=== PATIENT | male | born 1960 | race Caucasian/White ===

== ENCOUNTER 2017-02-15 13:17 | Emergency (ER) | payer OTHER ==
[~2017-02-15] VITALS: Ht 172.7 cm; Wt 64.9 kg
[~2017-02-15 13:17] MED LIST: CENTRUM SILVER1 EAC2 PO; CEPHALEXIN500 MG PO; CITALOPRAM HBR20 MG PO; LOTENSIN HCT PO; MS CONTIN30 MG PO; NORCO 5-325 TA1 EACH PO; OXYCODONE HCL10 MG PO; SEPTRA DS TABL1 EACH PO; SIMVASTATIN10 MG PO; [UNRECOGNIZED DRUG - OTHER]
[2017-02-15] MEDS ORDERED: PROAIR HFA8.5 GM INH (13:36)
[2017-02-15] MEDS ORDERED: KETOROLAC TROME10 MG PO (13:48)
[2017-02-15] MEDS ORDERED: VENTOLIN HFA18 GM INH (13:48)
== END 2017-02-15 13:55 | disposition home or self-care (01) ==
LOC: ED 13:17
DX: Z76.0 Encounter for issue of repeat prescription (principal); J44.9 Chronic obstructive pulmonary disease, unspecified; F43.10 Post-traumatic stress disorder, unspecified; F17.200 Nicotine dependence, unspecified, uncomplicated; Z79.899 Other long term (current) drug therapy
CPT/HCPCS: 99281

== ENCOUNTER 2018-07-30 04:19 | Inpatient (IN) | payer MEDICARE, OTHER ==
[~2018-07-30] VITALS: Ht 172.7 cm; Wt 60.8 kg
[~2018-07-30 04:19] MED LIST changes: +KETOROLAC TROME10 MG PO; +PROAIR HFA8.5 GM INH; +VENTOLIN HFA18 GM INH
[2018-07-30] MEDS ORDERED: DEPAKOTE500 MG PO (04:33)
[2018-07-30] MEDS ORDERED: CELEXA40 MG PO (04:34)
[2018-07-30] MEDS ORDERED: HYDROCHLOROTHIA25 MG (04:35)
[2018-07-30] MEDS ORDERED: HYDROXYZINE HCL10 MG PO (04:36)
[2018-07-30] MEDS ORDERED: RISPERIDONE4 MG PO (04:36)
[2018-07-30] MEDS ORDERED: ONDANSETRON ODT8 MG PO (04:38)
[2018-07-30] MEDS ORDERED: AMOXICILLIN500 MG PO (04:39)
[2018-07-30] MEDS ORDERED: MONTELUKAST SOD10 MG PO (04:39)
--- NOTE | 2018-07-30 07:41 | NUR ---
PT TO CCU AT APPROXIMATLY 0720 FROM ER. PT IV SITE INTACT, NO REDNESS OR SWELLING NOTED, PT DENIES PAIN WITH FLUSH. PT IS ALERT AND ORIENTED X4, VERY FIDGETY IN THE BED, HAS DIFFICULTY HOLDING STILL, PT IS COOPERATIVE. PT ABLE TO TRANSFER SELF BY SCOOTING FROM GURNEY TO BED. PT DENIES PAIN, NAUSEA, C/O SOB AT THIS TIME, STATES BIPAP IS HELPING.
--- NOTE | 2018-07-30 09:08 | NUR ---
PT HAS BIPAP OFF FOR A BREAK, PLACED ON 4L OXYMASK. PT ABLE TO SWALLOW PILLS EASILY WITH WATER. PT APPEARS MORE CALM AT THIS TIME, NO LONGER FIDGETING IN BED, ABLE TO CLOSE EYES AND REST AT TIMES.
--- NOTE | 2018-07-30 09:55 | NUR ---
pt placed back on bipap.
--- NOTE | 2018-07-30 10:37 | NUR ---
PT UP OUT OF BED SUDDENLY TO USE THE RESTROOM. PT ASSISTED WITH GETTING BIPAP OFF, GIVEN URINAL TO USE AT THE BEDSIDE. PT ABLE TO VOID 425, THEN BACK TO BED. 4 L VIA OXYMASK IN PLACE, BED ALARM IS ON, CALL LIGHT WITHIN REACH. EDUCATION GIVEN TO PT ABOUT THE IMPORTANCE OF CALLING FOR HELP BEFORE GETTING OUT OF BED, PT APPEARS AGREEABLE TO THIS.
--- NOTE | 2018-07-30 12:02 | NUR ---
IV SITE INTACT, NO REDNESS OR SWELLING NOTED, PT DENIES PAIN WITH FLUSH OR INFUSION. PT MOSTLY RESTING, WAKES EASILY. PT DENIES PAIN, NAUSEA, AND SOB AT THIS TIME. PT DELISA OXYMASK WELL, O2 SATS 97%. PT STATES HE IS TOO TIRED TO EAT HIS CLEAR LIQUID LUNCH TRAY AT THIS TIME. VITALS WNL.
--- NOTE | 2018-07-30 12:39 | NUR ---
RENEE LAYNE STATED THAT PT HAD A ROUGH NIGHT BREATHING, AND HAD FINALLY FALLEN ASLEEP. SHE REQUESTED I NOT DISTURB PT AT THIS TIME. WILL FOLLOW NEEDED
--- NOTE | 2018-07-30 13:52 | NUR ---
PT JUST OFF THE PHONE FROM VISITING WITH HIS . PT C/O BEING HUNGERY, REQUESTING A SANDWICH, THIS RN ASKED THE PT TO EAT SOME CRACKERS AND DRINK A 7-UP FIRST BEFORE SOLID FOOD. PT C/O THIS PLAN, HOWEVER IS EATING A CRACKER. PT STATES "I'M BORED". ALSO STATES "I WANT TO GO HOME".
--- NOTE | 2018-07-30 13:56 | NUR ---
PT APPEARS TO BE BECOMING ANXIOUS AGAIN. IS FIDGETING IN BED, RESTLESS MOVEMENT OF HANDS AND FEET.
--- NOTE | 2018-07-30 14:06 | NUR ---
CALLED TO UPDATE ON PT REQUEST FOR SANDWICH, ORDER GIVEN TO ADVANCE DIET TO HEART HEALTHY DIET. UPDATED ALSO ON RESP STATUS, PT NOT REQUIRING BIPAP, RESTING AND TALKING COMFORTABLY WITH OXYMASK ON OR ON ROOM AIR.
--- NOTE | 2018-07-30 14:22 | NUR ---
PT GIVEN VISTARIL PO FOR INCREASED ANXIETY, GIVEN TYLENOL PO FOR ELEVATED TEMP OF 99.8, OFFERED PT A SANDWICH, PT STATES "I'LL HAVE ONE LATER, NOT RIGHT NOW".
--- NOTE | 2018-07-30 17:05 | NUR ---
IV SITE INTACT, NO REDNESS OR SWELLING NOTED, PT DEINES PAIN WITH INFUSION OF FLUIDS. PT IS ALERT AND ORIENTED X4. PT DENIES PAIN, NAUSEA, AND SOB AT THIS TIME. PT SITTING UP IN BED WATCHING TV. VITALS WNL AT THIS TIME. PT DELISA ROOM AIR, O2 SATS ARE 98%.
--- NOTE | 2018-07-30 17:10 | NUR ---
TRIED TO SEE PATIENT TWICE TODAY, BOTH TIMES PATIENT WAS SLEEPING SOUNDLY AND STAFF DID NOT WANT TO WAKE HIM. SPOKE WITH STAFF NURSES WHO STATE THEY HAS SPOKEN WITH PATIENTS BY PHONE AND THAT SHE EXPECTS PATIENT DISCHARGE TO HOME. WIFES NAME IS HERIBERTO AND NUMBER IS [phone]. STAFF STATE PATIENT IS AMBULATORY AND DOES NOT USE KNOWN DME.
--- NOTE | 2018-07-30 18:41 | NUR ---
PT ABLE TO EAT PART OF HIS DINNER, THEN FELL ASLEEP IN BED, WILL LEAVE TRAY IN CASE PT WOULD LIKE TO EAT MORE.
--- NOTE | 2018-07-30 19:15 | NUR ---
Patients bed alarm went off during report I popped in and he was using the urinal. He resulted in 425ccs. Patient did not need anything further at this time.
--- NOTE | 2018-07-30 20:00 | NUR ---
RECEIVED REPORT AT 1900, FOUND PT IN BED SLEEPING. PT HAS SINCE BEEN SLEEPING MOST OF THE TIME. NO NEW CONCERNS NOTED AT THIS TIME. ALL LOBES CLEAR. NO EDEMA NOTED, ABD SOUNDS PRESENT.
--- NOTE | 2018-07-30 22:00 | NUR ---
PT AT THIS TIME IS STILL SLEEPING. I ASSUEME HE IS COMING OF THE METH. PT DENIED ANY NEEDS OR CONCERNS. WILL CONTINUE TO MONITOR.
--- NOTE | 2018-07-31 01:37 | NUR ---
PT IS STILL SLEEPING. NO NEW CONCERNS NOTED AT THIS TIME.
--- NOTE | 2018-07-31 03:30 | NUR ---
PT IS SLEEPING. NO NEW CONCERNS.
--- NOTE | 2018-07-31 04:30 | NUR ---
LOBES ARE CLEAR BUT VERY DIMINISHED AT THIS TIME. PT IS STILL VERY TIRED. ASKED PT IF HE NEEDED TO VOID AND PT STATED "NOT AT THIS TIME BUT IN A LITTLE WHILE". V/S ARE WDL AND PT IS STILL ON RA. NO NEW CONCERNS NOTED.
--- NOTE | 2018-07-31 06:29 | NUR ---
PT AWOKE SHORTLY BEFORE 0600 AND WAS IN NEED OF A BREATHING TREATMENT. RT WAS CALLED. PT WAS WHEEZING AT THAT TIME. TREATMENT HELPED PT A LOT WAS STATED BY HIM. PT ALSO PULLED OUT IV WHILE STANDING ON SIDE OF THE BED TO VOID. NEW IV SITE WAS PLACED. V/S ARE WDL, NO NEW CONCERNS NOTED SO FAR. PT NOW IS BACK IN BED SLEEPING. PT ALSO STATED THAT HE WILL LEAVE HERE ON Thursday08/01/18 AMA IS HE WON'T BE D/C.
--- NOTE | 2018-07-31 07:30 | NUR ---
REPORT RECIEVED. PATIENT IS ASLEEP.HOB ELEVATED.
--- NOTE | 2018-07-31 08:30 | NUR ---
ATTEMPTED TO GIVEN PATIENT MEDICATIONS. PATIENT REMAINS VERY SLEEPY. STATES " I WILL TAKE THEM LATER" BACK TO SLEEP WITHIN SECONDS.
--- NOTE | 2018-07-31 09:34 | NUR ---
remains asleep. BREAKFAST IS AT BEDSIDE. NO DISTRESS NOTED.
--- NOTE | 2018-07-31 11:09 | NUR ---
CONTINUE TO SLEEP. NO DISTRESS NOTED.
--- NOTE | 2018-07-31 11:20 | NUR ---
PATIENT IS AWAKE UPON DR. VOGT ENTERING ROOM. PATIENT STATES HE FEELS MUCH BETTER TODAY. TOMMIE RECIVED TO TRANSFER TO [facility]LO[facility].
--- NOTE | 2018-07-31 11:35 | NUR ---
TALKING TO ON PHONE. NO DISTRESS NOTED.
--- NOTE | 2018-07-31 11:45 | NUR ---
PATIENT IS UP IN ROOM. TAKING OFF PJ BOTTOMS, MONITOR LEADS, OXIMETER, ATTEMPTING TO TAKE IV OUT. PATIENT STATES"I AM LEAVING". NO REASONING WITH PATIENT. DR. VOGT NOTIFIED. DR. VOGT THEN CAME TO TALK WITH PATIENT. AFTER DR. VOGT TALKED WITH PATIENT, HE AGREED TO STAY IN HOSPITAL.
--- NOTE | 2018-07-31 12:00 | NUR ---
DRESSED IN OWN CLOTHING. ASSESSMENT DONE. VISTARIL 50 MG PO GIVEN. PATIENT IS SHAKEY. IS COOPERATIVE AT THIS TIME.
--- NOTE | 2018-07-31 12:15 | NUR ---
IV STARTED TO RIGHT FOREARM. IS COOPERATIVE AT THIS TIME. DENIES PAIN OR SHORTNESS OF BREATH. RESP ARE LABORED WITH EXERTION. IVF OF D5LR INFUSING.
--- NOTE | 2018-07-31 12:35 | NUR ---
TOOK LUNCH WELL. REPORT GIVEN TO MED-CASH MANAGEMENT CLERK.
--- NOTE | 2018-07-31 12:50 | NUR ---
AMBULATED TO ROOM 109 FROM 129 ACCOMP BY RN. O2 AT 3 L ON DURNING THIS TRANSFER. REMAINS COOPERATIVE.
--- NOTE | 2018-07-31 12:53 | NUR ---
ARRIVED TO ROOM 109 W/O INCIDENT. PATIENT THEN TOOK O2 OFF. RN IN ROOM.
--- NOTE | 2018-07-31 13:00 | NUR ---
PT ARRIVED TO ROOM WITH SBA OF CCU RN. PT WALKED FROM OTHER UNIT WITH 3L NC IN PLACE. TOLERATED WELL. VITALS TAKEN AND STABLE. PT WITH FLAT AFFECT AND MINIMAL INTERACTION WITH NURSE. ORIENTED TO ROOM. CALL LITH IN REACH. WATER AND COFFEE PROVIDED. DENIES FURTHER NEEDS.
--- NOTE | 2018-07-31 15:05 | NUR ---
PT LYING IN BED WITH EYES CLOSED. RESPIRATIONS EQUAL AND NONLABORED. D5LR AT 75 INFUSING. CALL LIGHT IN REACH.
--- NOTE | 2018-07-31 17:00 | NUR ---
PT SITTING AT SIDE OF BED FOR DINNER. ON RA. RESPIRATIONS EQUAL ANDNONLABORED. DENIES NEEDS. CALL LIGHT IN REACH.
--- NOTE | 2018-07-31 19:20 | NUR ---
RECEIVED REPORT FROM RENEE CARDOZO. pt RESTING IN BED. REFUSED TO URINATE AT THIS TIME, WILL CALL WHEN HE NEEDS TO. WHITEBOARD UPDATED. NO REQUESTS AT THIS TIME. CALL LIGHT WITHIN REACH.
--- NOTE | 2018-07-31 20:05 | NUR ---
DIRECTOR WHOLESALE ROUNDING NOTE. PT UTILIZES CALL LIGHT FOR NEED TO VOID. PT STANDS AT BEDSIDE AND USES URINAL WITH NO ASSISTANCE. PT REQUESTS SANDWHICH BOX AND CHIP, DENIES FURTHER NEEDS AT THIS TIME. CALL LIGHT WITHIN REACH.
--- NOTE | 2018-07-31 20:32 | NUR ---
V/S AND I&O TAKEN AND CHARTED. ICE WATER AND COFFEE GIVEN PER PATIENT'S REQUEST. PATIENT STATED HE MIGHT TAKE SHOWER LATER. PATIENT INSTRUCTED TO LET US KNOW SO WE WILL WRAP THE IV SITE. PATIENT AGREED.
--- NOTE | 2018-07-31 21:32 | EKG ---
[facility] [address] [place] [address] Signed Sinus tachycardia Right bundle branch block Abnormal ECG No previous ECGs available Confirmed by KARLA VOGT MD ([id number]) on 07/31/2018 9:31:57 PM Electronically Signed By: KARLA VOGT MD 07/31/18 2132 PATIENT NAME: ANITA FRIAS Electrocardiogram DATE OF : 60 PHYSICIAN: KARLA VOGT MD REPORT #: [id number] REPORT IS CONFIDENTIAL AND NOT TO BE RELEASED WITHOUT AUTHORIZATION
--- NOTE | 2018-07-31 21:56 | NUR ---
ASSESSMENT AND MEDICATIONS DUE. pt ALERT AND ORIENTED. ASSESSMENT DONE. pt ABLE TO IDENTIFY WHY HE IS TAKING EACH MEDICATION. MEDICATIONS GIVEN (SEE MAR). ROOM TIDIED. NO REQUESTS AT THIS TIME. CALL LIGHT WITHIN REACH. LIGHTS DIMMED FOR COMFORT.
--- NOTE | 2018-07-31 22:50 | NUR ---
pt REQUESTED SOMETHING FOR RESTLESSNESS, PRN MED GIVEN PER REQUEST (SEE MAR). pt REPORTED A BRIEF EPISODE OF SOB, RT NOTIFIED. REFUSING NEB TREATMENT AT THIS TIME. DENIES SOB RIGHT NOW. CALL LIGHT WITHIN REACH. NO FURTHER REQUEST AT THIS TIME.
--- NOTE | 2018-08-01 00:25 | NUR ---
pt REQUESTED SANDWICH AND SOUP, SOUP PROVIDED. TECHNICAL SUPPORT CONSULTANT WILL BRING SANDWICH. NO FURTHER REQUESTS AT THIS TIME. CALL LIGHT WITHIN REACH.
--- NOTE | 2018-08-01 02:09 | NUR ---
ROUNDED ON pt. RESTING WITH EYES CLOSED, RESPIRATIONS REGULAR AND UNLABORED. RATE = 16. CALL LIGHT WITHIN REACH. URINAL EMPTIED.
--- NOTE | 2018-08-01 04:18 | NUR ---
ROUNDED ON pt. RESTING WITH EYES CLOSED, RESPIRATIONS REGULAR AND UNLABORED. CALL LIGHT WITHIN REACH.
--- NOTE | 2018-08-01 05:14 | NUR ---
pt RESTED TOWARD END OF SHIFT. ONE BRIEF EPISODE OF SOB. SCHEDULED NEB TREATMENTS. IVF INFUSING. TOLERATING HEART HEALTHY DIET. SAT >90 ON ROOM AIR. VISTARTIL X1. ADAMENT ABOUT LEAVING TODAY BY 10 AM. CALLS KARAN
--- NOTE | 2018-08-01 06:25 | NUR ---
pt AWAKE. ASSESSMENT DONE. pt DENIED SOB AND PAIN. SATS >90 ON ROOM AIR. COFFEE PROVIDED. NO FURTHER REQUESTS AT THIS TIME. CALL LIGHT WITHIN REACH.
--- NOTE | 2018-08-01 07:04 | NUR ---
RECIEVED BEDSIDE REPORT FROM RENEE HI. PT REPORTS LEAVING AMA AT 1000. SHERIFFS OFFICER AWARE. PT AWAKE AND ALERT IN BED.
[2018-08-01] MEDS ORDERED: CEFUROXIME500 MG PO (08:22)
[2018-08-01] MEDS ORDERED: DIVALPROEX SOD500 M1 PO (08:23)
[2018-08-01] MEDS ORDERED: SIMVASTATIN40 MG PO (08:25)
[2018-08-01] MEDS ORDERED: PREDNISONE20 MG PO (08:27)
--- NOTE | 2018-08-01 08:53 | NUR ---
DR VOGT ROUNDED AND DISCHARGED PT AFTER STEROIDS AND ABX. STEROIDS GIVEN, IV FULSHED, ABX RUNNING AT THIS TIME. PT AGREEABLE TO WAITING UNTIL THE ABX FINISH. WILL GET DISCHARGE COMPLETE SOON POSSIBLE.
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
--- NOTE | 2018-08-01 09:43 | NUR ---
PT DISCHARGE TEACHING COMPLETE BY RN AND PHARMACY. PT STATED HE UNDERSTOOD DISCHARGE INSTRUCTIONS. PT VERY ANXIOUS TO LEAVE, DID NOT WANT TO SIT DOWN, WAS PACING RN WAS EXPLAINING. IV REMOVED, CATH INTACT. VITALS TAKEN. PT WAS TAKEN TO THE LOBBY WHERE HE STATED HIS BROTHER WOULD MEET HIM.
== END 2018-08-01 09:40 | disposition home or self-care (01) | DRG 189 ==
LOC: ED 04:19 → CCU 07:03 → MS 07-31 12:55
PROVIDERS: ADMIT Internal Medicine
PROC: 5A09357 Assistance with Respiratory Ventilation, Less than 24 Consecutive Hours, Continuous Positive Airway Pressure (ICD-10-PCS; principal; 2018-07-30)
DX: J96.21 Acute and chronic respiratory failure with hypoxia (principal); J44.1 Chronic obstructive pulmonary disease with (acute) exacerbation; F17.210 Nicotine dependence, cigarettes, uncomplicated; F41.9 Anxiety disorder, unspecified; F43.10 Post-traumatic stress disorder, unspecified; I10 Essential (primary) hypertension; E78.5 Hyperlipidemia, unspecified; F15.10 Other stimulant abuse, uncomplicated; F11.10 Opioid abuse, uncomplicated; Z79.899 Other long term (current) drug therapy; Z99.81 Dependence on supplemental oxygen
CPT/HCPCS: 36415; 36600; 71045; 80053; 82803; 83605; 83735; 83880; 84484; 85025; 93005; 93010; 94640; 94660; 96365; 96367; 96375; 99291; 99292; J0456; J0696; J1650; J2405; J2930; J3475; J7030; J7060; J7120; Q0177

== ENCOUNTER 2018-12-15 23:03 | Inpatient (IN) | payer MEDICARE, OTHER ==
[~2018-12-15] VITALS: Ht 167.6 cm; Wt 59.4 kg
[~2018-12-15 23:03] MED LIST changes: +AMOXICILLIN500 MG PO; +CEFUROXIME500 MG PO; +CELEXA40 MG PO; +DEPAKOTE500 MG PO; +DIVALPROEX SOD500 M1 PO; +HYDROCHLOROTHIA25 MG; +HYDROXYZINE HCL10 MG PO; +MONTELUKAST SOD10 MG PO; +ONDANSETRON ODT8 MG PO; +PREDNISONE20 MG PO; +RISPERIDONE2 MG PO; +SIMVASTATIN40 MG PO
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
--- NOTE | 2018-12-16 01:30 | NUR ---
0100 PATIENT ARRIVED TO THE UNIT VIA STRETCHER. RT WITH PATIENT MAINTAINING VENT. IN ROOM. PATIENT MOVED TO BED VIA DRAW SHEET. RASS SCORE +3, PRN MEDS PROVIDED FOR COMFORT. WRIST RESTRAINTS X2. VENT SETTINGS PER RT. VS STABLE. TIGHT LUNG SOUNDS HEARED IN CINDY UPPER LOBES. D5LR @ 125. PRECEDEX TITRATED PER ORDER FOR SEDATION. PRN MORPHINE FOR PAIN. ET TUBE 22 @ THE LIP. 0130 PATIENT'S VS STABLE. VENT SETTINGS PER RT. RASS SCORE +1.
--- NOTE | 2018-12-16 02:27 | NUR ---
0100 PATIENT ARRIVED TO THE UNIT VIA STRETCHER. RT WITH PATIENT MAINTAINING VENT. IN ROOM. PATIENT MOVED TO BED VIA DRAW SHEET. RASS SCORE +3, PRN MEDS PROVIDED FOR COMFORT. WRIST RESTRAINTS X2. VENT SETTINGS PER RT. VS STABLE. TIGHT LUNG SOUNDS HEARED IN CINDY UPPER LOBES. D5LR @ 125. PRECEDEX TITRATED PER ORDER FOR SEDATION. PRN MORPHINE FOR PAIN. ET TUBE 22 @ THE LIP. 0100 PATIENT'S VS STABLE. VENT SETTINGS PER RT. RASS SCORE +1.
--- NOTE | 2018-12-16 03:00 | NUR ---
ABG DRAWN BY THIS RN. VENT SETTINGS CHANGED PER RT AT 0230, FI02 40% AND VT 550.
--- NOTE | 2018-12-16 04:00 | NUR ---
RASS SCORE -1. SEDATION TITRATED. ORAL CARE PER RN. RT IN ROOM FOR NEB AND VENT CHECK. SETTINGS FI02 30%, VT 550, PEEP 5, CMV 20. URINE OUTPUT 150. PATIENT TURNED TO LEFT SIDE. LUNG SOUNDS VERY TIGHT IN UPPER LOBES AND ABSENT IN LOWER LOBES. VS STABLE. AT BEDSIDE.
--- NOTE | 2018-12-16 05:00 | NUR ---
RASS SCORE -2. VENT SETTINGS; PIP 18, FI02 35%, PEEP 5, VT 550, CMV 20. SEDATION TITRATION PER ORDERS. WRIST REDTRAINTS LOOSENED AND RE-TIED. PATIENT APPEARS COMFORTABLE.
--- NOTE | 2018-12-16 06:32 | NUR ---
PATIENT COUGHING AND JERKING IN BED. RASS SCORE +2. PRN MORPHINE PROVIDED. AT BEDSIDE. PATIENT RELAXING, RASS SCORE -1
--- NOTE | 2018-12-16 07:30 | NUR ---
PATIENT SHIFT REPORT RECIEVED FROM CASINO DEALER RNS. PATIENT IS RESTING IN BED AT THIS TIME TIME HIS AT THE BEDSIDE. PATIENT IS INTABATED AND CURENTLY HAS A RASS OF ABOUT -3. PATIENT VITALS STABLE PE REPORT. PATIENT IS ON PRECEDEX AND VERSED. WILL CONTINUE TO CLOSELY MONITOR.
--- NOTE | 2018-12-16 08:45 | NUR ---
PATIENT ASSESSMENT COMPLETED BY REED WORKER RN. PATIENT BREATH SOUDNS ARE DIMINISED AND TIGHT. PATIENT IS INTABATED WITH 7.5 SIZE TUBE AND REMAINS AT 22 AT THE TEETH. FIO2-35%, VT 550, PEEP 5, PIP 17, RASS -3, BOWEL TONES ACTIVE. ABD SOFT AND NONDISTENDED. RESTAINTS BILATERAL WRISTS. CMS INTACT. PRECEDEX AT 0.8MCG/KG/HR, VERSED AT 3MLS/HR. HAYES IN PLACE WITH CLEAR YELLOW URINE PRESENT. WILL CONTINUE TO CLOSELY MONITOR.
--- NOTE | 2018-12-16 10:15 | NUR ---
PATIENT OG TUBE INSRTERED PER MD MURILLO. X-RAY PLACEMENT CONFIRMED. OG TUBE TO LOW-INTERMIT. SUCTION WITH MINIMAL OUTPUT NOTED. MEDICATIONS ADMINISTERED. GAVE PRN MORPHINE D/T MORE AGITATED AND SITTING UP WITH MOVEMENT PER MD INCREASE VERSED. VERSED AT 5MLS/HR. RESTRAINTS CHECKED AND CMS INTACT. REPOSITIONED PATIENT FOR COMFORT.
--- NOTE | 2018-12-16 10:20 | NUR ---
PER MD INCREASE VERSED GTT TO 5MLS/HR FOR INCREASED AGITATION.
--- NOTE | 2018-12-16 12:19 | NUR ---
PATIENT RESTING IN BED AT THIS TIME. PATIENT ASSESSMENT REMAINS UNCHANGED FROM PRIOR ASSESSMENT. NG TUBE HAS BROWNISH COLORED DRAINAGE NOTED. NO OTHER CHANGES IN MEDICATION AT THIS TIME. PATIENT REPOSITIONED WITH PILLOW SUPPORT AND APPEARS TO BE RESTING COMFORTABLY AT THIS TIME. RESTRAINTS CHECKED AND CMS IS INTACT. WILL CONTINUE TO CLOSELY MONITOR.
[2018-12-16] MEDS ORDERED: SPIRIVA RESPIMAT4 GM INH (13:10)
[2018-12-16] MEDS ORDERED: ALBUTEROL2.5 MG/3 M INH (13:12)
[2018-12-16] MEDS ORDERED: SYMBICORT 16010.2 GM INH (13:12)
[2018-12-16] MEDS ORDERED: CELEXA40 MG PO (13:24)
[2018-12-16] MEDS ORDERED: VOLTAREN100 GM TOP (13:32)
[2018-12-16] MEDS ORDERED: VENTOLIN HFA18 GM INH (13:33)
[2018-12-16] MEDS ORDERED: NICORETTE2 MG BUCCAL (13:34)
[2018-12-16] MEDS ORDERED: SODIUM FLUORIDE56 GM MM (13:37)
[2018-12-16] MEDS ORDERED: NICOTINE PATCH1 EACH TD (13:38)
--- NOTE | 2018-12-16 13:53 | NUR ---
MED REC COMPLETE
--- NOTE | 2018-12-16 14:00 | NUR ---
ORDERED FOOD FOR PATIENTS . PATIENT IS RESTING WITH A RASS OF -3. HAYES IN PLACE. VITALS DOCUMENTED. RESTRAINTS CHECKED AND REPOSITIONED. CMS INTACT. REPOSITIONED PATIENT FOR COMFORT. WILL CONTINUE TO CLOSELY MONITOR.
--- NOTE | 2018-12-16 14:08 | NUR ---
WAS ASKED BY CASE MANAGEMENT IF I COULD ASSIST IN FINDING PT'S SIG.OTHER A RIDE BACK TO [place]. SPENT SOME TIME RESEARCHING AND WAS UNABLE TO FIND EQUITABLE WAY BACK EXCEPT WITH [place]. SHE HAS DECIDED TO STAY WITH PT AND THINKS FAMILY FROM [place] WILL BE COMING UP. CCU RN ASKED ME TO HELP CARE FOR HER. WILL CONTINUE TO FOLLOW NEEDED
--- NOTE | 2018-12-16 15:00 | NUR ---
PATIENT RESTING IN BED. PATIENTS EATING SOME FOOD AT THE BEDSIDE AND DENIES ANY NEEDS. PATIENT APPEARS COMFORTABLE AT THIS TIME. WILL CONTINUE TO CLOSELY MONITOR. RESTRAINTS CHECKED AND CMS INTACT. ROM PROVIDED. WILL CONTINUE TO CLOSELY MONITOR.
--- NOTE | 2018-12-16 16:30 | NUR ---
TITRATED VERSED BACK TO 3MLS/HR. PATIENT IS CURRENTLY AT A -4 TO -3. WILL CONTINUE TO CLOSELY MONITOR EFFECTIVENESS AND TITRATE NEEDED.
--- NOTE | 2018-12-16 16:58 | NUR ---
PATIENT ASSESSMENT COMPELTED. PATIENT BREATH SOUNDS MORE CLEAR THIS AFTERNOON. RT IN TO ASSESS PATIENT AND VENTILATOR. PATIENTS PIP HAS SLOWLY TRENDED UP THIS AFTERNOON. MORPHINE ADMINISTERED AND PATIENT RESPONDING TO SIMPLE YES/NO QUESTIONS WITH SHAKING HIS HEAD. BED BATH COMPLETED AND BEDDING CHANGED. PATIENT FLOATING ON PILLOWS AT THIS TIME. WILL CONTINUE TO CLOSELY MONITOR.
--- NOTE | 2018-12-16 18:54 | NUR ---
REPOSITIONED PATIENT WITH PILLOW SUPPORRT. PATIENT TOLERATED WELL. RESTRAINTS REPOSITIONED. PATIENT RESTING AT THIS TIME. REMAINS AT THE BEDSIDE. WILL CONTINUE TO CLOSELY MONITOR. VERSED GTT AT 3MLS/HR AND PRECEDEX GTT AT 0.8MCG/KG/HR.
--- NOTE | 2018-12-16 20:39 | NUR ---
RECEIVED REPORT AT 1900 FROM SANDRA DURAN. pt RESTING WITH EYES CLOSED, RASS -4. APPROXIMATELY 10 MINUTES LATER ALERTED THAT pt WAS RESTLESS. FOUND pt SITTING IN BED, PULLING AGAINST RESTRAINTS AND ATTEMPTING TO REACH ET TUBE. ABLE TO REDIRECT. PRN PAIN MED GIVEN (SEE MAR). ROUNDED AGAIN, pt RESPONDED TO QUESTION "IF YOU ARE STILL IN PAIN, SQUEEZE MY HAND" BY SQUEEZING THE NURSES HAND. MORE PAIN MEDICATION WAS GIVEN (SEE MAR). DUE TO pt BEING RESTLESS STAFF GATHERED TO MOVE pt TO ROOM DIRECTLY ACROSS FROM NURSES STATION. pt TOLERATED MOVE WELL. ASSESSMENT DONE. SCHEDULED MEDICATIONS GIVEN (SEE MAR). RASS -3 AT THIS TIME. CURTAIN OPEN TO NURSES STATION.
--- NOTE | 2018-12-16 22:00 | NUR ---
RT IN ROOM. FIO2 NOW SET AT 28 O2 SAT 96%. ORAL CARE DONE pt AWOKE AND RESISTED RESTRAINTS, REASSURED WITH VOICE, INCREASED VERSED TO 5MG FOR THE DURATION OF ORAL CARE. VERSED AT 3MG/HR, pt RESTING, RASS -3. RESTRAINTS RELEASED, ROM PERFORMED. RESTRAINTS IN PLACE. CURTAIN OPEN TO NURSES STATION.
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
--- NOTE | 2018-12-16 23:45 | NUR ---
pt RESTLESS, ATTEMPTING TO SIT UP. RASS +2 REASSURED, VERSED INCREASED TO 4MG/HR. OG TUBE FLUSHED. pt RESTING, RASS -3. WILL CONTINUE TO MONITOR. CURTAIN OPEN TO NURSES STATION.
--- NOTE | 2018-12-17 | NUR ---
RASS -3. ASSESSMENT DONE. HAYES CARE DONE. RESTRAINTS ASSESSED. NO CHANGES TO VENT OR IV SETTINGS. CURTAIN OPEN TO NURSES STATION.
--- NOTE | 2018-12-17 01:09 | NUR ---
RASS -3. pt REPOSITIONED. RESTRAINTS IN PLACE. CURTAIN OPEN TO THE NURSES STATION.
--- NOTE | 2018-12-17 02:09 | NUR ---
RASS -3. pt DID RESIST DURING ORAL CARE, RESPONDED TO VERBAL REASSURANCE.
--- NOTE | 2018-12-17 02:30 | NUR ---
SINCE URINE OUTPUT HAS BEEN DECREASING FOR THE PAST FEW HOURS, PRECEDEX DRIP WAS REDUCED FROM 0.8MCK/KG/HR TO 0.6MCG/KG/HR TO SEE IF URINE OUTPUT WILL SENIOR PRODUCTION SUPERVISOR SOME. IF NOT, DRIP WILL BE TITRATED TO 0.8 AGAIN.
--- NOTE | 2018-12-17 03:05 | NUR ---
RASS -3. REPOSITIONED pt, ROM, RESTRAINTS RELEASED AND REDONE. MOVED EYEBROWS WHEN ASKED QUESTIONS BUT DID NOT OPEN EYES.
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
--- NOTE | 2018-12-17 04:40 | NUR ---
pt RESTLESS RASS +3. PRN MEDICATION GIVEN (SEE MAR). PULSE INCREASED TO 70s. RESPIRATION RATE UP TO 25. pt CLOSELY MONITORED.
--- NOTE | 2018-12-17 06:01 | NUR ---
AT 0551 MD MURILLO WAS CALLED DUE TO INCREASED WORK OF BREATHING OF PT. AN ORDER FOR 5MG HALDOL IV ONCE. MD MURILLO JUST ARRIVED ON FLOOR.
--- NOTE | 2018-12-17 06:21 | NUR ---
RASS +2/+3. MD GAVE VERBAL ORDER FOR 8MG. MED GIVEN (SEE MAR).
--- NOTE | 2018-12-17 06:40 | EKG ---
[facility] [address] [place], [place] [address] Signed Normal sinus rhythm Right bundle branch block Abnormal ECG When compared with ECG of 30-JUL-2018 04:33, Questionable change in QRS axis Confirmed by ARVIND MURILLO MD ([id number] on 12/17/2018 6:40:22 AM Electronically Signed By: ARVIND MURILLO MD 12/17/18 0640 PATIENT NAME: ALTAGRACIAANITA Electrocardiogram DATE OF : 60 PHYSICIAN: ARVIND MURILLO MD REPORT #: [id number] REPORT IS CONFIDENTIAL AND NOT TO BE RELEASED WITHOUT AUTHORIZATION
--- NOTE | 2018-12-17 07:00 | NUR ---
RASS +2, PRN ATIVAN GIVEN (SEE MAR). CONTINUING TO OBSERVE pt.
--- NOTE | 2018-12-17 07:30 | NUR ---
PATIENT SHIFT REPORT RECIEVED FROM WRISTER RN. PATIENT RESTING IN BED WITH RESTRAINTS TO BILATERAL WRISTS. CMS INTACT. PATIENT REMAINS ON THE VENTILATOR AT THIS TIME WITH SIMV 20, PEEP 5, PS 10, FIO2 32%, VT 550. ETT 7.5 AND 22 AT THE TEETH. PATIENT HAS BEEN MORE DIFFICULT TO SEDATE AND HAS NOT BEEN COMPLIANT THIS AM WITH THE VENTILATOR. CURRENTLY PATIENT IS RESTING AT THIS TIME. HERIBERTO AT THE BEDSIDE. WILL CONTINUE TO CLOSELY MONITOR.
--- NOTE | 2018-12-17 08:30 | NUR ---
PATIENT SHIFT ASSESSMENT COMPLETED. PATIENT BREATH SOUNDS DIMINISHED AND INSPIRATORY WHEEZE NOTED AT TIMES. VENTILATOR SETTINGS REMAIN UNCHANGED AT THIS TIME. PATIENT ETT IS AT 22 AT THE TEETH. OG TUBE PRESENT WITH BILE COLORED DRAINAGE NOTED. BOWEL TONES HYPOACTIVE. ABD SOFT AND NON-DISTENDED. HAYES PRESENT WITH DILUTE URINE. REPIRATORY THERAPIST IN TO SEE PATIENT. WILL CONTINUE TO CLOSELY MONITOR.
--- NOTE | 2018-12-17 10:30 | NUR ---
MEDICATIONS ADMINISTERED. PATIENT REPOSITIONED WITH PILLOW SUPPORT AND TOLERATED WELL. PATIENT WOKE ONCE AND WAS ABLE TO RELAX BACK DOWN WITH TALKING QUIETLY TO HIM. RESTRAINTS REPOSITIONED. ROM PROVIDED. MORPHINE ADMINISTERED FOR COMFORT. PATIENT TENSE AND RIDIG AND GRIMACING AT TIMES. PATIENT AT THE BEDSIDE. NO OTHER ISSUES AT THIS TIME. PER MD MURILLO WE WILL ENCOURAGE PATIENT REST TODAY AND WILL ASSESS FOR WEANING PATIENT READINESS TOMORROW. WILL CONTINUE TO CLOSELY MONITOR.
--- NOTE | 2018-12-17 12:00 | NUR ---
NEW IV PLACED IN LEFT FOREARM. PATIENT TOELRATED WELL. GAVE PATIENTS PHONE NUMBERS FROM THE PHONE BOOK TO SEE IF SHE CAN GET A RIDE HOME. PATIENTS HAD BREAKFAST THIS AM AND TOOK A SHOWER TO FRESHEN UP. PATIENT REMAINS ON VENTILATOR AND ASSESSMENT REMAINS UNCHANGED FROM THIS AM. PATIENT APPEARS MORE RELAXED AT THIS TIME. WILL CONTINUE TO CLOSELY MONITOR.
--- NOTE | 2018-12-17 12:10 | NUR ---
PT STILL ON VENT, RENEE NORIEGA AND STUDENT HELPING CLEAN PT-SHAVING ETC. MET HERIBERTO IN [place], PT'S AND SHE SAID SHE WAS OK. NO OTHER FAMILY HAVE COME YET. GAVE ENCOURAGEMENT, WILL FOLLOW NEEDED
--- NOTE | 2018-12-17 14:00 | NUR ---
PATIENT RESTING IN BED. PATIENT RECIEVED PRN MEDICATIONS TO ASSIST WITH SEDATION BY OTHER RN AT THIS TIME. PT TENSE AND TRING TO SIT UP AT TIMES. PATIENT RESPONDS WELL TO VOICE, BUT STILL NOT RELAXED. WILL CONTINUE TO CLOSELY MONITOR.
--- NOTE | 2018-12-17 14:05 | NUR ---
PATIENT REMAINS ON THE VENT. HE HAS BEEN NPO FOR ALMOST 48 HOURS. WILL AWAIT POSSIBLE EXTUBATION TOMORROW WITH HOPES PATIENT WILL BE ALERT ENOUGH TO CONSUME FOOD/DRINK BY MOUTH. WILL CONTINUE TO MONITOR.
--- NOTE | 2018-12-17 16:15 | NUR ---
PATIENT RESTING IN BED. ASSESSMENT COMPLETED AND REMAINS UNCHANGED FROM PRIOR ASSESSMENT. GAVE PRN HALDOL D/T PATIENT SITTING UP IN BED DURING BED BATH. PATIENT RESPONDED WELL TO HALDOL. PATIENT RESTRAINTS AND BEDDING CHANGED. PATIENT TOLERATED WELL AND NOW RESTING AT THIS TIME. AT THE BEDSIDE. WILL CONTINUE TO CLOSELY MONITOR.
--- NOTE | 2018-12-17 18:59 | NUR ---
PATIENT GRIMACING MORE THIS EVENING. REPOSITIONED PATIENT WITH PILLOW SUPPORT AND GAVE PRN MORPHINE. PATIENT NOW MORE RELAXAED. RESTRAINTS IN PLACE. CMS INTACT. TRIED CALLING PATIENTS SISTER EARLIER IN THE DAY WITH NO ANSWER. NO FAMILY HAS CALLED TODAY FOR PATIENT OR FAMILY. PATIENTS REMAINS AT THE BEDSIDE. DINNER PROVIDED FOR . VENTILATOR SETTINGS REMAIN UNCHANGED. WILL CONTINUE TO CLOSELY MONITOR.
--- NOTE | 2018-12-17 19:33 | NUR ---
RECEIVED REPORT AT 1900, PT AT THAT TIME AND SO FAR HAS BEEN CALM IN BED. ASSESSMENT TO FOLLOW SHORTLY.
--- NOTE | 2018-12-17 20:15 | NUR ---
ALL LOBES ARE CLEAR AT THIS TIME. THEY ARE DIMINISHED IN THE BASES. ABD SOUNDS ARE HYPOACTIVE BUT ABD IS SOFT TO TOUCH. NO PERIPHERAL EDEMA NOTED AT THIS TIME. PT IS CALM AT THIS TIME. RASS SCORE -3 AT THIS TIME. OG TUBE BRIEFLY TURNED ON. MEDICATION ADMINISTERED AND THEN FLUSHED WITH 40MLS H2O. SUCTION AT THIS TIME IS OFF. RESTRAINTS ARE WDL AT THIS TIME. URINE OUTPUT IS ADEQUATE SO FAR.
--- NOTE | 2018-12-17 21:15 | NUR ---
AT 2100 PT WAS TURNED WITH PILLOWS ON HIS LEFT SIDE NOW. PT TOLERATED WELL. ROM WAS DONE WITH ARMS AND LEGS, PT TOLERATED WELL. ORAL CARE WAS DONE PT TOLERATED WELL. CUFF PRESSURE WAS CHECKED WITH OTHER RN AND WAS WDL. TUBE WAS MOVED FRON LEFT SIDE OF MOUTH TO RIGHT SIDE OF MOUTH. BUTTOM LIP HAS SOME BREAKDOWN PRESENT IN THE MIDDLE. NO OTHER CONCERNS NOTED. WILL CONTINUE TO MONITOR.
--- NOTE | 2018-12-17 22:17 | NUR ---
V/S ARE WDL, PT IS CALM, RASS AT -4 AT THIS TIME. URINE OUTPUT IS WDL. NO NEW CONCERNS NOTED AT THIS TIME.
--- NOTE | 2018-12-17 23:05 | NUR ---
RASS SCORE AT THIS TIME IS -5. PT WAS TURNED WITH HIPS FLOATING AT THIS TIME. OG TUBE WAS BRIEFLY TURNED TO SUCTION AND NOW IS TURNED OFF AGAIN. V/S OVERALL ARE WDL WITH SOME ELEVATED BP 154/85 (100). RESTRAINTS ARE WDL.
--- NOTE | 2018-12-18 00:10 | NUR ---
LOBES AT THIS TIME ARE TIGHT. NO WHEEZING NOTED AT THIS TIME. RASS SCORE STILL -5 AT THIS TIME. ABD SOUNDS ARE STILL HYPOACTIVE OVERALL. WILL CONTINUE TO MONITOR.
--- NOTE | 2018-12-18 02:04 | NUR ---
RASS SCORE AT THIS TIME -4. ALL LOBES ARE CLEAR BUT DIMINISHED. SUCTION OF MOUTH WAS DONE. PT AROUSED SOME BUT TOLERATED SUCTION OVERALL WELL. RESTRAINTS ARE WDL.
--- NOTE | 2018-12-18 03:13 | NUR ---
PT WAS TURNED AT 0300. DURING THAT TIME PT AWOKE AND TRIED TO SIT UP. RASS -2 AT THAT TIME. 8MG IV MORPHINE WAS GIVEN. PT CALM AT THIS TIME. RESTRAINTES WERE RELEASED AND ASSESSED. THEY ARE WDL. NO NEW CONCERNS NOTED AT THIS TIME.
--- NOTE | 2018-12-18 05:00 | NUR ---
TEMP AT THIS TIME IS A 100.2 F TEMPORAL. PT WAS TURNED WITH PILLOWS ON HIS LEFT SIDE. RASS SCORE -4 AT THIS TIME. WILL CONTINUE TO MONITOR.
--- NOTE | 2018-12-18 06:34 | NUR ---
AT 0600 PT HAD A SMALL MUCUS SMEAR OF A BM. PT MAY NEED ENEMA AFTERALL. RECTAL TEMP WAS ALSO DONE WHILE CLEANING HIM UP. RECTAL TEMP WAS 99.2F. PT DID WAKE WHEN WE ATTEMPTED TO TURN HIM AND 1MG PRN IV ATIVAN WAS GIVEN. PT WAS COOPERATIVE AFTERWARDS. URINE OUTPUT WAS ADEQUATE THIS SHIFT, V/S AT THIS TIME ARE WDL.
--- NOTE | 2018-12-18 07:30 | NUR ---
REPORT RECIEVED. IS RESTFUL IN BED WITH PRECEDEX GTT AT 1.2MCG/KG/HR AND VERSED GTT AT 5 MG/HR. VENT SETTING TV-550, FIO2-32, PEEP-5, PS-10. SIMV-20. HAYES CATH IS PATENT WITH CLEAR YELLOW URINE NOTED. FLANDREAU TO 30. ORAL CARE GIVEN. PATIENT IS IN ROOM.
--- NOTE | 2018-12-18 08:30 | NUR ---
DR. MURILLO HERE TO TALK WITH STAFF AND ABOUT PLAN FOR EXTABATION TODAY.
--- NOTE | 2018-12-18 08:35 | NUR ---
PRECEDEX DECREASED TO 0.6 MCG/KG/HR. VERSED TO 25. MG/HR. THIS PER DR. MURILLO ORDERS.
--- NOTE | 2018-12-18 09:44 | NUR ---
ON CPAP. RR-25, SAT-96. PRECEDEX GTT 0.6. VERSED GTT 2.5 MG HR. IVF 75 ML/HR. NURSES ARE AT BEDSIDE, HOB ELEVATED 30. IS IN ROOM.
--- NOTE | 2018-12-18 10:07 | NUR ---
ABG RESULTS, PH-7.45,PCO2-37.5,PO2-87,BICARB-26.6.
--- NOTE | 2018-12-18 10:15 | NUR ---
MORPHINE 5 MG IV GIVEN FOR RESP COMFORT.
--- NOTE | 2018-12-18 10:26 | NUR ---
HALDOL 1 MG IV GIVEN PER DR MURILLO REQUEST.
--- NOTE | 2018-12-18 10:36 | NUR ---
DR. MURILLO HERE ORDERS RECIEVED TO EXTABATE. THIS DONE PER RT. PATIENT TOLERATED WELL. NOW ON OXYMASK AT 2 L VIA OXYMASK. HAS OCC DRY COUGH. ATTEMPTING TO TALK AT TIMES. PATIENT ENCOURAGED NOT TO TALK.
--- NOTE | 2018-12-18 10:45 | NUR ---
NEB TREATMENT GIVEN. HOB REMAINS ELEVATED. SAT-90 ON 2 LITERS. RR-30.
--- NOTE | 2018-12-18 11:00 | NUR ---
PERECEDEX 0.4 MCG/KG/HR. VERSED TO 0.5 MG HR.
--- NOTE | 2018-12-18 11:15 | NUR ---
DR. MURILLO HERE TO REEVALUTE PATIENT. NO FUTHER ORDERS.
--- NOTE | 2018-12-18 11:22 | NUR ---
HAS BEEN CALM SINCE EXTABATED.
--- NOTE | 2018-12-18 12:00 | NUR ---
ASSESSMENT DONE. LUNGS REMAIN WITH SCATTERED WHEEZES. OCC NONPRODUCTIVE COUGH. GOOD U/O.
--- NOTE | 2018-12-18 13:30 | NUR ---
VERSED GTT TO OFF, REMAINS ON PRECEDEX GTT AT 0.4 MCG/KG/HR. ASKED ID HE WAS IN HOSPITAL AND WHAT DAY IT IS. REORIENTED. IS FRUSTRATED IS UNSURE OF DAY.
--- NOTE | 2018-12-18 14:35 | NUR ---
BED LINEN CHANGED. WITH INCREASED MOVEMENT RESP MORE LABORED. MORPHINE 5 MG IV GIVEN. PATIENT IS SOMEWHAT RESTLESS.
--- NOTE | 2018-12-18 15:03 | NUR ---
REMAINS SOMEWHAT RESTLESS. IS AT BEDSIDE. O2 AT 3.5 L NC. SAT-97
--- NOTE | 2018-12-18 15:35 | NUR ---
VERY ANXIOUS. ATIVAN 1 MG IV GIVEN.
--- NOTE | 2018-12-18 16:22 | NUR ---
MORE CALM AFTER ATIVAN GIVEN EARLIER. WATCHING TV.
--- NOTE | 2018-12-18 16:30 | NUR ---
HAS BEEN TAKING FLUIDS WELL. REQUESTING FOOD. FULL LIQUID DIET ORDERED.
--- NOTE | 2018-12-18 17:30 | NUR ---
TOOK 1/2 BOWL OF SOUP,AND APPROX 10 BITES OF POTATOES.
--- NOTE | 2018-12-18 18:20 | NUR ---
PRECEDEX DRIP GTT DECREASED TO 0.2 MCG/KG/HR. PATIENT IS RESTFUL, WATCHING TV.
--- NOTE | 2018-12-18 19:30 | NUR ---
REPORT RECIEVED FROM CCU RN, CARE ASSUMED AT THIS TIME. UPON INIITIAL ASSESSMENT OF PATIENT, LUNGS TIGHT THROUGHOUT ALL AIR LEON, PT REPORTS INCREASED ANXIETY AND WORK OF BREATHING. RESPIRATIONS EVEN AND LABOR R=26/ MIN. ACCESSORY MUSCLE USE NOTED. PT OXYGEN SATURATION AT 93 PERCENT ON 3.5 L NC. PT GIVEN PRN MEDICATION AND RT IN TO GIVE BREATHING TREATMENT. PLAN OF CARE FOR EVENING DISCUSSED AT THIS TIME. PRECEDEX DRIP INFUSING AT 0.2 MCG/KG/MIN. IV FLUIDS INFUSING WELL. PT IS ALERT AND ORIENTED, UNDERSTANDS PLAN OF CARE FOR THE NIGHT. NO FURTHER NEEDS AT THIS TIME.
--- NOTE | 2018-12-18 20:32 | NUR ---
CALLED INTO PATIENT ROOM. PT ASKING QUESTIONS ABOUT IV INFUSIONS AND HAYES CATHETER. EDUCATED PT ON IV, MEDICATION, ADMINISTRATION. PT VERBALIZED UNDERSTANDING. APPEARS RESTLESS IN BED, MOVING LEGS AND FREQUENTLY REPOSITIONING SELF IN BED. WILL CONTINUE TO MONITOR
--- NOTE | 2018-12-18 20:53 | NUR ---
PT ASKING AT THIS TIME TO GO OUTSIDE AND SMOKE. STATES HE BELIEVES HE IS MORE ANXIOUS BECAUSE OF NICOTINE CRAVING.
--- NOTE | 2018-12-18 21:00 | NUR ---
DR MURILLO CALLED TO ASK FOR INCREASE IN NICOTINE PATCH DOSAGE. ORDERS RECIEVED (SEE EMAR).
--- NOTE | 2018-12-18 21:31 | NUR ---
PT REPORTS BEING COLD AND TIRED BUT UNABLE TO FALL ASLEEP, RESPIRATIONS EVEN BUT LABORED R=16. LEGS STILL RESTLESS IN BED. PRECEDEX DRIP INCREASED TO 0.4 MCG/KG/MIN. WARM BLANKETS PROVIDED AND LIGHTS TURNED DOWN IN ROOM. WILL CONTINUE TO MONITOR
--- NOTE | 2018-12-18 23:00 | NUR ---
PT RESTING WITH EYES CLOSED BREATHING EVEN R=18. OXYGEN SATURATIONS 97 PERCENT ON 3.5 L NC.
--- NOTE | 2018-12-18 23:59 | NUR ---
IN TO ASSESS PATIENT, RT IN ROOM AT THIS TIME TO GIVE BREATHING TREATMENT. PT LUNGS SOUND TIGHT ACROSS ALL AIR LEON. ABLE TO SPEAK IN FULL SENTENCES, RESPIRATIONS EVEN BUT LABORED, ACCESSORY MUSCLE USE NOTED. NO STATED OR ASSESSED NEEDS AT THIS TIME.
--- NOTE | 2018-12-19 02:01 | NUR ---
RESPONDED TO PT CALL. REPORTS FEELING WET FROM URINE. SMALL AMOUNT OF LEAKING AROUND CATHETER. LINEN CHANGE COMPLETED. PT ANXIETY AND SHORTNESS OF BREATH WITH MOVEMENT. PRN MEDICATION ADMINISTERED (SEE EMAR).
--- NOTE | 2018-12-19 04:00 | NUR ---
PT RESTING WITH EYES CLOSED, BREATHING EVEN AND UNLABORED R=18. OXYGEN SATURATIONS 97-100 PERCENT ON 3.5 L NC. CALL LIGHT AND PERSONAL BELONGINGS WITHIN REACH.
--- NOTE | 2018-12-19 04:45 | NUR ---
PT ASSESSMENT COMPLETED. PT AWOKE BREIFLY AND THEN FELL BACK ASLEEP DURING ASSESSMENT. PRECEDEX DRIP DECREASED TO 0.2 MCG/KG/MIN AT THIS TIME.
--- NOTE | 2018-12-19 06:00 | NUR ---
LAB IN ROOM AT THIS TIME.
--- NOTE | 2018-12-19 07:30 | NUR ---
REPORT RECIEVED. PATIENT IS ASLEEP IN BED. NO DISTRESS NOTED. PRECEDEX TO OFF.
--- NOTE | 2018-12-19 09:00 | NUR ---
DR. MURILLO HERE TO SEE PATIENT. PATIENT IS VERY ANXIOUS AND TALKATIVE. ENCOURAGE PATIENT TO RELAX. TOOK BREAKFAST WELL.
--- NOTE | 2018-12-19 09:20 | NUR ---
AMBULATED TO BR, IS SOMEWHAT LIGHTHEADED WITH AMBULATION. NO BM. PASSED FLATUS. BACKED TO BED. IS SHORT OF BREATH WITH EXERTION. REMAINS VERY ANXIOUS.
--- NOTE | 2018-12-19 09:30 | NUR ---
ATIVAN 1 MG IV GIVEN PATIENT REMAINS VERY ANXIOUS. HAYES CATH DC'D PER ORDERS, TOLERATED FAIR.
--- NOTE | 2018-12-19 09:45 | NUR ---
OXYCODONE 10 MG PO GIVEN FOR GENERAL DISCOMFORT. HAS CONGESTED NONPRODUCTIVE COUGH. PO COUGH MED GIVEN.
--- NOTE | 2018-12-19 10:30 | NUR ---
VOIDING TO URINAL.
--- NOTE | 2018-12-19 10:49 | NUR ---
WATCHING TV. DENEIS PROBLEMS.
--- NOTE | 2018-12-19 13:10 | NUR ---
IS WITH INCREASED RESP DISTRESS. MORPHINE 5 MG IV GIVEN.
--- NOTE | 2018-12-19 13:31 | NUR ---
NEB TREATMENT GIVEN.
--- NOTE | 2018-12-19 14:00 | NUR ---
LESS RESP DISTRESS NOTED AT THIS TIME.
--- NOTE | 2018-12-19 15:30 | NUR ---
SAT PATIENT AT BEDSIDE READY FOR SHOWER. AFTER TALKING WITH PATIENT ABOUT SHOWER WE BOTH DECIDED TO CANCEL SHOWER PATIENT VERY ANXIOUS. PATIENT DID AMBULATED TO BR TO EXPELL SMALL STOOL THEN TO CHAIR. SPONGE BATH GIVEN.
--- NOTE | 2018-12-19 16:20 | NUR ---
ATIVAN 1 MG IV GIVEN PATIENT VERY ANXIOUS. DR. MURILLO UPDATED ON PAIN. PATIENT CONTINUE TO WATCH FOOTBALL ON TV.
--- NOTE | 2018-12-19 17:15 | NUR ---
TOOK DINNER WELL. REMAINS VERY ANXIOUS. OOB TO BR TO VOID 200 ML OF CLEAR YELLOW URINE, IS A LITTLE UNSTEADY ON FEET.
--- NOTE | 2018-12-19 17:30 | NUR ---
DR. MURILLO UPDATED ON PATIENT. ORDERS RECIEVED. MORPHINE 5 MG IV GIVEN FOLLOWED BY OXYCODONE 10 MG PO GIVEN TO CALM PATIENT.
--- NOTE | 2018-12-19 17:40 | NUR ---
SEROQUAL 50 MG PO GIVEN. TAKING PO FLUIDS WELL.
--- NOTE | 2018-12-19 19:26 | NUR ---
REPORT RECIEVED BY CCU RN, CARE ASSUMED AT THIS TIME. PT RECIEVING BREATHING TREATMENT FROM RT AT THIS TIME.
--- NOTE | 2018-12-19 20:17 | NUR ---
IN ROOM FOR ASSESSMENT. PT AMBULATED TO BATHROOM. UNSTEADY GAIT. HEART RATE AND RESPIRATORY RATE AND EFFORT INCREASED WITH AMBULATION. OXYGEN SATURATIONS DOWN TO 88 PERCENT. INCREASED BACK TO 98 PERCENT AFTER GETTING BACK TO BED. PT GIVEN HS MEDS AND PRN IV PAIN MEDICATION AT THIS TIME. DISCUSSED PLAN OF CARE FOR NIGHT. PATIENT VERBALIZED UNDERSTANDING, ALL QUESTIONS ANSWERED. CALL LIGHT WITHIN REACH. NO FURTHER NEEDS AT THIS TIME.
--- NOTE | 2018-12-19 21:46 | NUR ---
PT REQUESTING PRN MEDICATION FOR ANXIETY. ADMINISTERED AT THIS TIME ( SEE EMAR). PT WATCHING TELEVISION. BREATHING EVEN AND UNLABORED R+18. CALL LIGHT WITHIN REACH. NO FURTHER NEEDS AT THIS TIME.
--- NOTE | 2018-12-19 22:32 | NUR ---
COUGHING, GIVEN ROBITUSSIN PO.
--- NOTE | 2018-12-19 22:38 | NUR ---
PT BEGAN COUGHING FOR SEVERAL MINUTES, AUDIBLE WHEEZES NOTED. RT CALLED TO GIVE PT BREATHING TREATMENT AT THIS TIME.
--- NOTE | 2018-12-20 00:32 | NUR ---
IN TO ASSESS PATIENT. ASSISTED PT TO BATHROOM. UNSTEADY GATE, BUT NO INCREASE IN DYSPNEA OR HEART RATE WITH AMBULATION. ASSESSMENT COMPLETED. PT HAS CALL LIGHT WITHIN REACH. NO FURTHER NEEDS AT THIS TIME.
--- NOTE | 2018-12-20 02:00 | NUR ---
PT FOUND STANDING AT BEDSIDE, REPORTS ANXIETY AT THIS TIME. PRN MEDICATION GIVEN (SEE EMAR).
--- NOTE | 2018-12-20 03:30 | NUR ---
PRN BREATHING TREATMENT GIVEN AT THIS TIME BY RESPIRATRORY THERAPY.
--- NOTE | 2018-12-20 04:58 | NUR ---
ASSESSEMENT COMPLETED. PT SLEEPING. RESPIRATIONS EVEN AND UNLABORED. CALL LIGHT WITHIN REACH.
--- NOTE | 2018-12-20 07:20 | NUR ---
REPORT RECIEVED. SLEEPING AT THIS TIME, NO DISTRESS NOTED.
--- NOTE | 2018-12-20 07:30 | NUR ---
AWAKE, REQUESTING SHOWER. AMBULATED WITH O2 AND RN TO ROOM 126 FOR SHOWER.
--- NOTE | 2018-12-20 08:00 | NUR ---
TOLERATED SHOWER VERY WELL. AMBULATED BACK TO ROOM. READY FOR BREAKFAST. DR. MURILLO HERE TO SEE PATIENT. ORDERS RECIEVEED TO TRANSFER TO MEDICAL FLOOR.
--- NOTE | 2018-12-20 08:40 | NUR ---
ROUTINE MEDICATIONS GIVEN WELL OXYCODONE 10 MG GIVEN AND VISTARIL 10 MG TO HELP PATIENT FROM BECOMING ANXIOUS. WHEN BECOMES ANXIOUS PATIENT BECOMES MUCH MORE DYSPNEIC.
--- NOTE | 2018-12-20 09:11 | NUR ---
RESTFUL. WATCHING TV. IVF PATENT. WILL BE TRANSFERRED TO MEDICAL FLOOR TODAY. O2 REMAINS AT 3.5 L NC.
--- NOTE | 2018-12-20 10:40 | NUR ---
TO MED-SURG VIA AMBULATION. RN ACCOMP PATIENT. TOLERATED AMBULATION WELL. BEDSIDE REPORT GIVEN TO IAN DURAN.
--- NOTE | 2018-12-20 10:45 | NUR ---
PT ARRIVED TO MED/SURG VIA AMBULATION. 3.5LNC IN PLACE. NOTED SLIGHT SOB. PT DENIES PAIN OR OTHER CONCERNS AT THIS TIME. PT ALERT AND ORIENTED. AGUA CALIENTE BUT VERBALIZES UNDERSTANDING OF POC. IV INFUSING IN LEFT HAND IV. PT NOW LYING IN BED WATCHING TV. PERSONAL BELONGINGS AT BEDSIDE. CALL LIGHT WITHIN REACH.
--- NOTE | 2018-12-20 12:15 | NUR ---
PT REQUESTED TO GO FOR A WALK. PORTABLE O2 IN PLACE. PT AMB HALLWAY WITH , STEADY ON FEET, DENIES SOB.
--- NOTE | 2018-12-20 13:24 | NUR ---
PATIENT WAS READY FOR LUNCH NURSE GLORIA ASSISTED PATIENT IN ORDERED HIS LUNCH, WILL CHECK IN
--- NOTE | 2018-12-20 15:00 | NUR ---
Met with Volodymyr and Denise, they are playing cards in the room. Volodymyr states he is ready to go home and in the past has left AMA. Strongly encouraged to not leave as I can see he is sob on his oxygen. He states he will thinks he will stick around. He then states he plans on driving to [place] on Thursday to retrieve his pickling operator. Denise will go with him, she does not drive. Strongly advised against this trip as he will be miles between hospitals and emergency services. He denies needing any DME as he has everything at home and states understands how to use nebulizer and does change the filter. He requests "something" for anxiety, informed he will need to discuss with Dr. Bull.
--- NOTE | 2018-12-20 15:06 | NUR ---
PT UP AMBULATING HALLWAY WITH HERIBERTO. JD TO BE ABLE TO VISIT WITH PT-HE HAS BEEN ON VENT. PT HOPES TO BE DC'D TOMORROW. GAVE THEM A G.POST AND TYLERING. WILL FOLLOW NEEDED
--- NOTE | 2018-12-20 15:28 | NUR ---
PT C/O ANXIETY AND AIR HUNGER. SEE EMAR FOR MEDS ADIMINISTERD. NEB TREATMENT ADMINISTRED BY R.T. AT THIS TIME. PT SITTING UP IN RECLINER PLAYING CARDS, LAUGHING AND JOKING AROUND WITH FAMILY. LEFT WRIST IV DRESSING SOILED AND FALLING OFF. IV DC'D. IV IN LEFT FOREARM FLUSHES EASILY, DRESSING CDI. IVF MOVED TO FOREARM IV SITE. CALL LIGHT WITHIN REACH.
--- NOTE | 2018-12-20 16:45 | NUR ---
PT HAS MULTIPLE VISITORS AT BEDSIDE. PT AMB AROUND ROOM INDEPENDENLY. DENIES DIFFICULTY BREATHING AT THIS TIME. CALL LIGHT WITHIN REACH.
--- NOTE | 2018-12-20 18:04 | NUR ---
PT REQUESTING SCHEDULED BED TIME ANTI ANXIETY MEDICATIONS. REPORTS HE IS MORE ANXIOUS RELATED TO BEING "STUCK IN THE HOSPITAL" AND NOT NOT BEING ABLE TO SMOKE. REPORTS THAT HIS BREATHING IS "OK" RIGHT NOW. DOES NOT APPEAR SOB OR SHOWING SIGNS OF RESPIRATORY DISTRESS AT THIS TIME. PACING AROUND ROOM WHILE HE EATS HIS DINNER AND WATCHING TV. PT CHATTING WITH . PT AGREEABLE TO DOSE OF PRN SEROQUEL AND WAIT FOR SCHEDULED MEDS. CALL LIGHT WITHIN REACH.
--- NOTE | 2018-12-20 20:30 | NUR ---
REPORT RECEIVED FROM DAY SHIFT RN. PT LYING IN BED, ALERT AND ORIENTED. 3.5 L/NC IN PLACE. NO APPARENT S/SX OF RESPIRATORY DISTRESS, PT DENIES SOB. PM MEDS GIVEN WITHOUT DIFFICULTY. PT DOES NOT APPEAR TO BE ANXIOUS AT THIS TIME. ASSESSMENT COMPLETE. IN THE ROOM. NO OTHER REQUESTS AT THIS TIME. CALL LIGHT IN REACH.
--- NOTE | 2018-12-20 21:00 | NUR ---
CALL LIGHT ANSWERED. IV IN LEFT FOREARM NOTED TO BE INFILTRATED. IV CATHETER REMOVED, TIP IN TACT. WARM BLANKET WRAPPED AROUND THE SITE, ELEVATED ARM ON PILLOW. PT DENIES PAIN AT THE SITE. PT IS REFUSING TO HAVE ANOTHER IV PUT IN AT THIS TIME. WILL NOTIFY
--- NOTE | 2018-12-20 21:52 | NUR ---
DR. VOGT AWARE OF INFILTRATED IV SITE AND PT REFUSAL FOR NEW IV. DR BHATT'D LEAVING IV OUT.
--- NOTE | 2018-12-21 00:09 | NUR ---
PT IN BED RESTING WITH EYES CLOSED. O2 3.5 L/NC IN PLACE. RR EVEN AND UNLABORED, NAD. ASLEEP IN THE ROOM. CALL LIGHT IN REACH.
--- NOTE | 2018-12-21 03:15 | NUR ---
PT CONTINUES TO REST IN BED. RR EVEN AND UNLABORED, OXYGEN VIA NC IN PLACE. CALL LIGHT WITHIN REACH.
--- NOTE | 2018-12-21 05:30 | NUR ---
PT RESTED WELL THROUGHOUT THE NIGHT. O2 3.5L/NC IN PLACE, SATS MID TO HIGH 90'S. NO SOB OR RESPIRATORY DISTRESS NOTED. LUNG SOUNDS DIMINISHED THROUGHOUT. IV DC'D LAST NOC DUE TO INFILTRATION AND PT REFUSING ANOTHER LINE. NOTIFIED, OK'D LEAVING IV OUT. DELISA REG DIET, VOIDING QS. PT PLEASANT AND COOPERATIVE. AMB IN THE ROOM INDEPENDANTLY. IN ROOM.
--- NOTE | 2018-12-21 05:57 | NUR ---
PT AWAKENED FOR VS AND ASSESSMENT. PLEASANT AND COOPERATIVE. O2 99% ON 3.5 L/NC. RR EVEN AND UNLABORED, PT DENIES SOB. STATES "I ACTUALLY FEEL PRETTY GOOD THIS MORNING." UP TO BR WITH NO ASSIST TO VOID 450 ML CL YELLOW URINE. BACK TO BED, DELISA WELL. PT DENIES OTHER NEEDS AT THIS TIME. CALL LIGHT IN REACH.
--- NOTE | 2018-12-21 07:55 | NUR ---
PT A&OX4. PT ON 3.5L PER NC, RESP EVEN AND NON LABORED. PERSONAL SUPPLIES AND CALL LIGHT WITHIN REACH.
--- NOTE | 2018-12-21 08:11 | NUR ---
Patient was up in his room. is in the room with patient. Patient is room independent. ambulation with [address] call light in reach and breakfast is in the room.
[2018-12-21] MEDS ORDERED: VENTOLIN HFA18 GM INH (10:42)
[2018-12-21] MEDS ORDERED: NICOTINE PATCH1 EACH TD (10:42)
[2018-12-21] MEDS ORDERED: HYDROXYZINE PAM25 MG PO (10:43)
[2018-12-21] MEDS ORDERED: PREDNISONE20 MG PO (10:44)
--- NOTE | 2018-12-21 11:24 | NUR ---
PT WAS STANDING UP IN , DRESSED AND PACING. HE ADMITTED HE IS READY FOR DC. HERIBERTO IS WITH PT, AND THEY ARE WAITING FOR THEIR RIDE TO COME FROM [place]. PT THANKED ME FOR MY VISITS, REQUESTED PRAYER. WILL FOLLOW NEEDED
--- NOTE | 2018-12-21 13:33 | NUR ---
Pt dressed and walking in the moss. Wanting to go home. Stating, "I may go ahead and leave". Encouraged to wait and speak with Dr. Bull. Pt asking for meds for anxiety. NOtified he will need to speak with Dr. Bull for any presriptions. Again denies needs for any equipment for dc.
== END 2018-12-21 12:00 | disposition home or self-care (01) | DRG 208 ==
LOC: ED 23:03 → CCU 12-16 00:32 → MS 12-20 10:44
PROVIDERS: ADMIT Internal Medicine
PROC: 5A1945Z Respiratory Ventilation, 24-96 Consecutive Hours (ICD-10-PCS; principal; 2018-12-16)
DX: J96.21 Acute and chronic respiratory failure with hypoxia (principal); J44.1 Chronic obstructive pulmonary disease with (acute) exacerbation; J96.22 Acute and chronic respiratory failure with hypercapnia; I10 Essential (primary) hypertension; E78.5 Hyperlipidemia, unspecified; F43.10 Post-traumatic stress disorder, unspecified; F17.200 Nicotine dependence, unspecified, uncomplicated; F41.1 Generalized anxiety disorder; Z79.899 Other long term (current) drug therapy; Z79.1 Long term (current) use of non-steroidal anti-inflammatories (NSAID); Z99.81 Dependence on supplemental oxygen; Z79.51 Long term (current) use of inhaled steroids
CPT/HCPCS: 31500; 31720; 36415; 36600; 51702; 71045; 80048; 80053; 81001; 82803; 83735; 83880; 84100; 84484; 85025; 93005; 93010; 94002; 94003; 94640; 94668; 99291; 99406; C9113; J0330; J0456; J0696; J1630; J1650; J2060; J2250; J2270; J2704; J2920; J7030; J7060; J7121; J7512; Q0177

== ENCOUNTER 2019-01-31 05:11 | Emergency (ER) | payer MEDICARE, OTHER ==
[~2019-01-31] VITALS: Ht 167.6 cm; Wt 59.4 kg
[~2019-01-31 05:11] MED LIST changes: +ALBUTEROL2.5 MG/3 M INH; +HYDROXYZINE PAM25 MG PO; +NICORETTE2 MG BUCCAL; +NICOTINE PATCH1 EACH TD; +SODIUM FLUORIDE56 GM MM; +SPIRIVA RESPIMAT4 GM INH; +SYMBICORT 16010.2 GM INH; +VOLTAREN100 GM TOP
--- NOTE | 2019-01-31 13:24 | EKG ---
[facility] [address] [place] [address] Signed Sinus rhythm with occasional premature ventricular complexes Right bundle branch block Abnormal ECG When compared with ECG of 15-DEC-2018 23:55, premature ventricular complexes are now present Inverted T waves have replaced nonspecific T wave abnormality in Inferior leads T wave inversion now evident in Anterior leads Confirmed by ARVIND MURILLO MD ([id number] on 01/31/2019 1:23:58 PM Electronically Signed By: ARVIND MURILLO MD 01/31/19 1324 PATIENT NAME: ANITA FRISA Electrocardiogram DATE OF : 60 PHYSICIAN: ARVIND MURILLO MD REPORT #: [id number] REPORT IS CONFIDENTIAL AND NOT TO BE RELEASED WITHOUT AUTHORIZATION
== END 2019-01-31 07:45 | disposition home or self-care (01) ==
LOC: ED 05:11
DX: J44.1 Chronic obstructive pulmonary disease with (acute) exacerbation (principal); F43.10 Post-traumatic stress disorder, unspecified; Z87.891 Personal history of nicotine dependence; Z79.899 Other long term (current) drug therapy
CPT/HCPCS: 36600; 71045; 80053; 82803; 83735; 83880; 84484; 85025; 93005; 93010; 94640; 94645; 96374; 99285-25; J2930

== ENCOUNTER 2019-02-02 16:08 | Inpatient (IN) | payer MEDICARE, OTHER ==
[~2019-02-02] VITALS: Ht 167.6 cm; Wt 57.1 kg
--- OUTSIDE RECORDS SUMMARY | 2019-02-02 16:10 | XMS ---
PreManage Notification: ANITA FRIAS [employer] [place] [employer] [facility] No recent Security Events currently on file CRITERIA MET - [facility] - 2 Visits in 30 Days CARE PROVIDERS There are no care providers on record at this time. Becca has no Care Guidelines for this patient. Derrick VISIT COUNT (12 MO.) [address] [facility] TOTAL 4 NOTE: Visits indicate total known visits. ED/C VISIT TRACKING (12 MO.) 02/02/2019 16:[address] [facility] [place] TYPE: Emergency COMPLAINT: - SOB 01/31/2019 05:12 [facility] TYPE: Emergency COMPLAINT: - SOB/COUGH 12/15/2018 23:03 [facility] TYPE: Emergency COMPLAINT: - SOB 07/30/2018 04:19 [facility] TYPE: Emergency COMPLAINT: - SOB INPATIENT VISIT TRACKING (12 MO.) 12/16/2018 00:32 [facility] TYPE: [facility] COMPLAINT: - ACUTE RESP FAILURE DIAGNOSES: - Generalized anxiety disorder - Other halfway (current) drug therapy - Dependence on supplemental oxygen - terminal carman (current) use of non-steroidal non-inflam (NSAID) - Acute and chronic respiratory failure with hypoxia - Hyperlipidemia, unspecified - Chronic obstructive pulmonary disease w (acute) exacerbation - Post-traumatic stress disorder, unspecified - Nicotine dependence, unspecified, uncomplicated - Essential (primary) hypertension - Acute and chronic respiratory failure with hypercapnia - terminal carman (current) use of inhaled steroids 07/30/2018 07:03 [facility] TYPE: [facility] COMPLAINT: - RESPIRATORY FAILURE DIAGNOSES: - Chronic obstructive pulmonary disease w (acute) exacerbation - Chronic obstructive pulmonary disease w (acute) exacerbation - Dependence on supplemental oxygen - Opioid abuse, uncomplicated - Post-traumatic stress disorder, unspecified - Essential (primary) hypertension - Other halfway (current) drug therapy - Acute and chronic respiratory failure with hypoxia - Nicotine dependence, cigarettes, uncomplicated - Dependence on supplemental oxygen - Other stimulant abuse, uncomplicated - Other dedicated intermodal truck driver (current) drug therapy - Post-traumatic stress disorder, unspecified - Other stimulant abuse, uncomplicated - Anxiety disorder, unspecified - Anxiety disorder, unspecified - Hyperlipidemia, unspecified - Nicotine dependence, cigarettes, uncomplicated - Hyperlipidemia, unspecified - Essential (primary) hypertension - Opioid abuse, uncomplicated [email or web address]
--- NOTE | 2019-02-02 19:40 | NUR ---
PT REPORT RECIEVED FROM LEARNING SUPPORT TEACHER, PT TRANSPORTED TO CCU VIA STRETCHER BY NURSING SYSTEMS ANALYST DEVELOPER AND RESPIRATORY THERAPY. PT TRANSPORTED ON 4 L NC. SATURATIONS AT 95 PERCENT ON ARRIVAL. INTIAL ASSESSMENT COMPLETED AT THIS TIME. PT LUNGS SOUND TIGHT THROUGHOUT, PT IS VISIBLY SHORT OF BREATH, RESPIRATORY RATE AT 30 BREATHS PER MINUTE.
--- NOTE | 2019-02-02 20:10 | NUR ---
PT TOOK ORAL MEDICATION AND PLACED ON BIPAP AT THIS TIME.
--- NOTE | 2019-02-02 20:29 | NUR ---
SPOKE WITH PT AND UPDATED HER ON PLAN OF CARE FOR EVENING.
--- NOTE | 2019-02-02 20:46 | NUR ---
PT ASKING HOW LONG HE NEEDS TO WEAR BIPAP. PT EDUCATION PROVIDED ABOUT BIPAP THERAPY. PT AGREES TO CONTINUE WEARING BIPAP AT THIS TIME.
--- NOTE | 2019-02-02 21:58 | NUR ---
PT REMAINS RESTING ON BIPAP WITH EYESE CLOSED. BREATHING EVEN AND UNLABORED R=[id number]. WILL CONTINUE TO MONITOR.
--- NOTE | 2019-02-02 22:30 | NUR ---
PT CONTINUES TO WEAR BIPAP WHILE RESTING. BREATHING EVEN AND UNLABORED. RR = 24. SATURATIONS AT 97 PERCENT. WILL CONTINUE TO MONITOR.
--- NOTE | 2019-02-02 23:30 | NUR ---
PT CONTINUES TO REST WITH BIPAP IN PLACE. BREATHING EVEN AND UNLABORED RR=24.
--- NOTE | 2019-02-03 00:12 | NUR ---
PT ASSESSMENT COMPLETED AT THIS TIME. TOOK BIPAP OFF TO COMPLETE ASSESSMENT, WITHOUT BIPAP, PT HEART RATE UP TO 100, AND RESPIRATORY EFFORT AND RATE INCREASED. BIPAP BACK ON, HEART RATE BACK INTO THE 90'S AND RR= 24. WORK OF BREATHING STILL INCREASED AT THIS TIME. WILL CONTINUE TO MONITOR.
--- NOTE | 2019-02-03 00:20 | NUR ---
PT CONTINUES TO REST WITH BIPAP IN PLACE. BREATHING EVEN AND UNLABORER RR=24.
--- NOTE | 2019-02-03 00:50 | NUR ---
PT UNABLE TO TOLERATE THE BIPAP, INCREASED SHORTNESS OF BREATH ON O2. GIVEN PRN MORPHINE AT THIS TIME. BIPAP PLACED BACK ON PATIENT.
--- NOTE | 2019-02-03 01:07 | NUR ---
PT HAS INCREASE WORK OF BREATHING AND USE OF ACCESSORY MUSCLES WHILE ON BIPAP. RESPIRATORY THERAPY CALLED TO GIVE PT BREATHING TX AT THIS TIME.
--- NOTE | 2019-02-03 02:05 | NUR ---
PT RESPIRATORY EFFORT HAS DECREASED AT THIS TIME. PT REMAINS ON BIPAP AT 32 PERCENT. R= 30. WILL CONTINUE TO MONITOR
--- NOTE | 2019-02-03 03:09 | NUR ---
PT RESTING WITH BIPAP. BREATHING IS UNLABORED, WITH A RESPIRATORY RATE=30. OXYGEN SATURATIONS AT 97 PERCENT.
--- NOTE | 2019-02-03 03:51 | NUR ---
IN ROOM TO ASSESS PATIENT AND MEDICATION ADMINISTRATION. LUNGS SOUND LESS TIGHT, BUT DIMINISHED THROUGHOUT. PT DISORIENTED TO TIME, EASILY REORIENTED. PT CONTINUES TO WEAR BIPAP. CALL LIGHT WITHIN REACH, NO FURTHER NEEDS AT THIS TIME. WILL CONTINUE TO MONITOR.
--- NOTE | 2019-02-03 05:26 | NUR ---
LAB IN ROOM FOR BLOOD DRAW
--- NOTE | 2019-02-03 05:40 | NUR ---
PT AWAKE AND ON 4 L NC AT THIS TIME. STATES HE FEELS BETTER THAN HE DID LAST NIGHT. BREATHING IS LABORED, BUT DYSPNEA NOT SEVERE THE BEGINNING OF THE SHIFT.
--- NOTE | 2019-02-03 06:22 | NUR ---
PT CONTINUES TO SATURATE AT 99 PERCENT ON 4 L NC.
--- NOTE | 2019-02-03 06:43 | NUR ---
PT AWAKE IN ROOM DRINKING COFFEE. ABLE TO SPEAK IN PARTIAL SENTENCES WHILE MAINTAINING SATURATIONS IN THE HIGH 90'S, BUT WITH MILD EXERTIONAL SHORTNESS OF BREATH.
--- NOTE | 2019-02-03 07:30 | NUR ---
In and spoke with pt. He is awake watching TV. Resp. labored. States not feeling well x 5 days. Cont. to live in [place] with his Denise. Has a nebulizer and 02 in the home. Denies financial needs. Use the [facility] clinic in [facility] with provider named Ansley. Plans on dc to home when stablizied.
--- NOTE | 2019-02-03 07:52 | NUR ---
REPORT RECEIVED FROM CANT HOOKER RN. PT IN BED, RESPITORY RATE 36, 4L NC IN PLACE. ALERT AND ORIENTED. DR MURILLO IN TO ROUND ON PT. DIET ADVANCED AND BREAKFAST ORDERED. CALL LIGHT IN REACH.
--- NOTE | 2019-02-03 08:00 | NUR ---
ASSESSMENT COMPLETED. PT IN BED WITH RETRACTIONS. BREATHING TREATMENT ADMINSITRED. RESPITORY RATE TO 26. LUNGS DIM AND TIGHT THROUGHOUT. PT COUGHING UP LARGE AMOUNTS OF GREEN PHLEM. 4L NC IN PLACE, O2 AT 100%. ASSISTED PT TO CHAIR FOR BREAKFAST. PT REPORTING ANXIETY AND SOB AFTER TALKING WITH ON PHONE. 2MG MORPHINE ADMINSTERED. PT REPORTS SOME RELEIF OF SOB AFTER MORPHINE. LINENS CHANGED. PT REQUESTING SHOWER LATER. WATER AND COFFEE PROVIDED. CALL LIGHT IN REACH.
--- NOTE | 2019-02-03 08:45 | NUR ---
MDTUnable to document MDT interventions. Pt. discussed in MDT.
--- NOTE | 2019-02-03 09:40 | NUR ---
ASSISTED PT BACK TO BED. 10% OF BREAKFAST ATE. CALL LIGHT AND PERSONAL ITEMS WITHIN REACH.
--- NOTE | 2019-02-03 10:54 | NUR ---
PT RESTING WITH EYES CLOSED. RESPITORY RATE 24 AT THIS TIME WITH O2 AT 100% ON 4L NC. PT APPEARS COMFORTABLE WITH LESS EFFORT TO BREATH THEN PREVIOUSLY. CALL LIGHT IN REACH.
--- NOTE | 2019-02-03 11:51 | NUR ---
PT AWAKE AND ORDERING LUNCH. REQUESTING NOON BREATHING TREATMENT. RT TO FLOOR TO ADMINISTERED.
--- NOTE | 2019-02-03 11:53 | NUR ---
PT SOUNDLY SLEEPING-NC O2 IN MOUTH. RENEE LAYNE REQUESTED I LET PT SLEEP AND COME BACK AGAIN. WILL FOLLOW NEEDED
--- NOTE | 2019-02-03 12:56 | NUR ---
PT WITH NO VOID SINCE BEGINING OF SHIFT. BLADDER SCAN DONE. PT DENIES URGE TO VOID. TRIED AND WAS ABLE TO VOID 275. 0 ML POST VOID RESIDUAL. PT BACK ON BED, ABLE TO EAT 40% OF LUNCH. DENEIS NEEDS. RESPIRATIOSN MID 20'S, STILL SOB WITH EXERTION. NO USE OR NEED OF BIPAP THIS SHIFT THUS FAR. CALL LIGHT IN REACH.
--- NOTE | 2019-02-03 14:59 | NUR ---
PT PRE MEDICATED WITH MORPHINE BEFORE TRIP TO SHOWER VIA CHAIR. PT ON 4L NC. WHILE IN SHOWER PT BECAME SOB, STARTED TRIPODING WITH INCREASED WORK OF BREATHING. PT TAKEN OUT OF SHOWER, RT CALLED FOR BREATHING TREATMENT. PT TAKEN BACK TO ROOM AND PLACED ON BIPAP. PT SITTING UP IN CHAIR. HEART RATE 130'S, BLOOD PRESURE TAKEN AT 100/50, RESPITORY RATE IN [place] 30'S. HEART RATE NOW 110. BIPAP AT 32% O2. SATURATIOSN 98%. RR NOW 29. PT REPORTS FEELING "MUCH BETTER" WITH BIPAP IN PLACE. FAMILY TO ROOM AND REPORTS PT HAS EPISODES LIKE THESE AT HOME WITH HOT SHOWERS FREQUENTLY. VISTERIL ADMINISTERED.
--- NOTE | 2019-02-03 15:28 | NUR ---
PT ASSISTED BACK TO BE, PT REMOVED BIPAP AND REQUSTED ONLY OXYGEN TO BE PLACED. WHEN TRYING TO CONVINCE THE PT TO STAY ON BIPAP TO HELP RECOVER FOR A LITTLE WHILE LONGER PT REFUSED. PT PLACED ON 4L NC AT THIS TIME. RR RANGING FROM 30-40. O2 99%, HR 98.
--- NOTE | 2019-02-03 15:38 | NUR ---
PT ASSISTED BACK TO BE, PT REMOVED BIPAP AND REQUSTED ONLY OXYGEN TO BE PLACED. WHEN TRYING TO EUDCATE ON IMPORTANCE OF BIPAP FOR RESPITORY RECOVERY PT REFUSED. PT PLACED ON 4L NC AT THIS TIME. RR RANGING FROM 30-40. O2 99%, HR 98.
[2019-02-03] MEDS ORDERED: COMBIVENT RESPIM4 GM INH (15:39)
[2019-02-03] MEDS ORDERED: IPRAT-ALBUT 0.5-3 ML INH (15:39)
[2019-02-03] MEDS ORDERED: CELEXA40 MG PO (16:01)
[2019-02-03] MEDS ORDERED: VOLTAREN100 GM TOP (16:02)
[2019-02-03] MEDS ORDERED: DEPAKOTE ER500 MG PO (16:04)
[2019-02-03] MEDS ORDERED: HYDROXYZINE HCL25 MG PO (16:06)
[2019-02-03] MEDS ORDERED: LIDODERM1 EACH TOP (16:06)
[2019-02-03] MEDS ORDERED: THERA-M CAPLET1 EACH PO (16:08)
[2019-02-03] MEDS ORDERED: NICOTINE PATCH1 EAC1 TOP (16:17)
[2019-02-03] MEDS ORDERED: NICOTINE LOZENGE2 MG BUCCAL (16:18)
[2019-02-03] MEDS ORDERED: RISPERDAL2 MG PO (16:23)
[2019-02-03] MEDS ORDERED: ZOCOR40 MG PO (16:24)
[2019-02-03] MEDS ORDERED: SODIUM FLUORIDE51 GM MM (16:26)
--- NOTE | 2019-02-03 16:26 | NUR ---
MED REC COMPLETE
--- NOTE | 2019-02-03 16:58 | NUR ---
PT REQUESTING NO VISTORS FOR THE NIGHT. CALLED, NO ANSWER. MESSAGE LEFT.
--- NOTE | 2019-02-03 17:37 | NUR ---
PT REPORTING ANXITEY R/T COMING TO HOSPITAL, REPORTS BREATHING IS GETTING WORSE THE MORE HE THINKS ABOUT IT, MORPHINE 2MG ADMINSITERED FOR SOB. TESALON PEARLS GIVEN FOR COUGH WELL PER PT REQUEST. DINNER AT BEDSIDE., CALL LIGHT IN REACH.
--- NOTE | 2019-02-03 18:33 | NUR ---
PT REQUESTED AND PLACED ON BIPAP.
--- NOTE | 2019-02-03 18:48 | NUR ---
PT REPORTING AXIETY R/T STRESS AND NOT SOB. DR VOGT NOTIFIED. NEW ORDERS TO BE PLACED.
--- NOTE | 2019-02-03 19:00 | NUR ---
SHIFT REPORT RECEIVED FROM DAYSILFT RENEE FLORES. PT AWAKE AND RESTING IN BED, 5LNC IN PLACE, O2 SAT WNL. PT SHOWS INCREASED WORK OF BREATHING, REPORTS NO PAIN AT THIS TIME. NO DISTRESS NOTED. WILL MONITOR. BOARD UPDATED, NO FURTHER NEEDS REPORTED. CALL LIGHT IN REACH.
--- NOTE | 2019-02-03 19:07 | NUR ---
0.5MG ATIVAN ADMINISTERED FOR ANXIETY. PT PLACED OF 5L NC FOR COMFORT. SATURATIONS AT 99%. NICOTINE PATCHED PLACED ON RIGHT SHOULDER. CALL LIGHT IN REACH.
--- NOTE | 2019-02-03 19:40 | NUR ---
0.5MG OF ATIVAN GIVEN FOR ANXIETY.
--- NOTE | 2019-02-03 19:45 | NUR ---
INFORMED BY RENEE VALENCIA PT REPORTING SOB WHILE RECEIVING SCHEDULED BREATHING TREATMENT. THIS RN IN ROOM TO ASSESS, RT ALREADY IN ROOM WITH PT. PT SITTING UPRIGHT ON EDGE OF BED, BIPAP IN PLACE. HANDS ON THIGHS, IN TRIPOD POSITION. HR 123, RR 26. O2 SAT WNL IN UPPER 90'S. EFFORT OF BREATHING INCREASED, USE OF ACCESSORY MUSCLES NOTED. COOL CLOTHS APPLIED TO BACK AND CHEST PER PT REQUEST. LUNG SOUNDS TIGHT WITH SCATTERED EXPIRATORY WHEEZES. PT BEGINNING TO SETTLE DOWN, SWITCHED TO 5LNC BY RENEE VALENCIA. ASSESSMENT COMPLETE. SCHEDULED MEDS GIVEN (SEE EMAR). PRN VISTARIL ALSO GIVEN FOR ANXIETY. PT TOOK ONLY ONE 500MG DEPAKOTE, REFUSED THE OTHER 1,000MG AT THIS TIME AND STATES, "I RARELY TAKE THREE, ONLY IF IT'S REALLY BAD". RENEE VALENCIA AWARE. VSS, PT DENIES PAIN. NO FURTHER NEEDS, CALL LIGHT IN REACH.
--- NOTE | 2019-02-03 20:38 | NUR ---
BIPAP ALARMING, RN IN ROOM TO ASSESS. PT REMOVED BIPAP AND STATES, "I WANT TO GET SOME SLEEP, I HAD IT ON FOR 45 MINUTES". PT SWITCHED TO 5LNC AT THIS TIME. NO FURTHER NEEDS, CALL LIGHT IN REACH. HR 105, O2 SAT 98%, RR MID 30'S.
--- NOTE | 2019-02-03 21:02 | NUR ---
PT RESTING IN BED, RR 34. 5LNC IN PLACE. LABORED BREATHING NOTED, BUT NO DISTRESS AT THIS TIME. EYES CLOSED. CALL LIGHT IN REACH.
--- NOTE | 2019-02-03 22:05 | NUR ---
SCHEDULED SOLU-MEDROL ADMINISTERED (SEE EMAR). RR 50, 02 SAT 88%, THIS RN IN ROOM TO ASSESS. NC OFF OF FACE. 5LNC IN PLACE, O2 SAT RETURNED TO 98%, HR 88. RR NOW 34. NO DISTRESS NOTED, PT DENIES NEEDS. CALL LIGHT IN REACH.
--- NOTE | 2019-02-04 | NUR ---
ASSESSMENT COMPLETE, RT IN ROOM FOR BREATHING TREATMENT. FOLLOWING TREATMENT, HR UP TO 120'S, PER PT REQUEST, PT PLACED ON BIPAP. O2 SAT REMAINED WNL DURING EVENT. DYSPNEA NOTED ALONG WITH INCREASED EFFORT OF BREATHING, BUT NO DISTRESS. THERAPEUTIC COMMUNICATION GIVEN. AFTER 10 MINUTES OR SO, PT PLACED BACK ON 5LNC PER REQUEST. O2 SAT 94%, HR 102. FRESH WATER GIVEN PER REQUEST, NO FURTHER NEEDS. CALL LIGHT IN REACH.
--- NOTE | 2019-02-04 01:53 | NUR ---
PT RESTING IN BED, EYES CLOSED. RR COUNTED MANUALLY, RATE OF 31. BREATHING LABORED, WILL MONITOR FOR CHANGES OR SIGNS OF DISTRESS. 5LNC IN MOUTH PT IS A MOUTH BREATHER, O2 SAT 97%. HR 80'S. CALL LIGHT IN REACH.
--- NOTE | 2019-02-04 04:05 | NUR ---
ASSESSMENT COMPLETE, NO NEW CHANGES OR CONCERNS. PT RESTING IN BED, EYES CLOSED. RR MID 30'S, LABORED BREATHING NOTED, BUT NO DISTRESS AT THIS TIME. COFFEE PROVIDED PER PT REQUEST. RT IN ROOM TO COMPLETE SCHEDULED BREATHING TREATMENT. NO FURTHER NEEDS, CALL LIGHT IN REACH.
--- NOTE | 2019-02-04 05:05 | NUR ---
PT HAD A GOOD NIGHT OVERALL, SLEPT OFF AND ON. VSS, TACHY UP TO 120'S WITH ANXIETY. SWITCHED FROM BIPAP AND 5LNC, RR REMAINS IN MID 30'S WITH LABORED BREATHING. LUNG SOUNDS DIM AND TIGHT, WITH SCATTERED EXPIRATORY WHEEZES. REGULAR DIET, NO NAUSEA THIS SHIFT. NO PAIN THIS SHIFT. USES CALL LIGHT APPROPERIATELY.
--- NOTE | 2019-02-04 06:17 | NUR ---
SCHEDULED SOLU-MEDROL GIVEN (SEE EMAR). IV SITE WNL, FLUSHES EASILY. PT DENIES ADDITIONAL NEEDS. PT INSTRUCTED TO ATTEMPT TO VOID VIA URINAL, PT AGREED. 5LNC IN PLACE, O2 SAT WNL. BREATHING STYLE REMAINS UNCHANGED FROM LAST ASSESSMENT. NO DISTRESS NOTED. CALL LIGHT IN REACH.
--- NOTE | 2019-02-04 07:08 | NUR ---
URINAL EMPTIED FOR 400MLS. INFORMED BY CAUL FAT PULLER STEVO THAT PT REPORTS FEELING ANXIOUS AND IS HAVING DIFFICULTY BREATHING. RT CALLED FOR BREATHING TREATMENT. DISCUSSED WITH CAUL FAT PULLER, PRN VISTARIL GIVEN. NO FURTHER NEEDS, CALL LIGHT IN REACH.
--- NOTE | 2019-02-04 08:38 | NUR ---
pt sleeping soundly at this time with bipap in place, heart rate is 60's-70's sinus rythm.
--- NOTE | 2019-02-04 08:46 | NUR ---
PT IS SLEEPING SOUNDLY AND VITALS ARE STABLE, MORNING ASSESSMENT WILL BE POSTPONED UNTIL PT WAKES UP.
--- NOTE | 2019-02-04 09:13 | NUR ---
PT STILL SLEEPING SOUNDLY WITH BIPAP IN PLACE, RESP RATE IS UPPER TEENS TO LOW 20'S. PT APPEARS TO BE IN NO DISTRESS. HR IS 60'S-70'S.
--- NOTE | 2019-02-04 09:25 | NUR ---
PT OFF BIPAP AND PLACED ON 4L O2 VIA NASAL CANULA PLACED IN MOUTH.
--- NOTE | 2019-02-04 10:22 | NUR ---
PT REMAINS DROWSY, WAKES WELL ENOUGH TO SWALLOW MEDS, FOLLOWS DIRECTIONS WELL. IV SITE IS INTACT, NO REDNESS OR SWELLING, PT DENIES PAIN WITH FLUSH, SITE FLUSHES WELL.
--- NOTE | 2019-02-04 10:55 | NUR ---
FULL REPORT GIVEN TO CAS DURAN ON MED/SURG VIA PHONE. ALL QUESTIONS ANSWERED.
--- NOTE | 2019-02-04 11:00 | NUR ---
PT ARRIVED TO FLOOR VIA. PT ON 4L NC. VITALS TAKEN AND STABLE. ORIENTED TO ROOM. CALL LIGHT IN REACH. DENIES NEEDS.
--- NOTE | 2019-02-04 11:07 | NUR ---
PATIENT ARRIVED TO MED SURG VIA BED. PATIENT IS ON 4L OF 02 VIA NC. NIECE IN ROOM VISITING PATIENT. VITALS ARE STABLE.
--- NOTE | 2019-02-04 11:14 | NUR ---
PT TRANSPORTED FROM ROOM 127 TO ROOM 114 ON MED/SURG VIA THE BED. PT REQUIRES 4L O2 VIA NC DURING TRANSPORT. PT DELISA TRANSFER WELL. RESP THERAPY HAS BEEN CONTACTED TO TRANSFER BIPAP TO NEW ROOM. ALL PT PERSONAL BELONGINGS WENT WITH PT TO ROOM 114.
--- NOTE | 2019-02-04 12:31 | NUR ---
RENEE LAYNE IS PREPPING PT TO TRANSFER TO M/S RM 114 AND HAD JUST GIVEN MEDS THAT MAKE IT DIFFICULT TO STAY AWAKE. WILL CONTINUE TO FOLLOW NEEDED
--- NOTE | 2019-02-04 13:00 | NUR ---
PT IN BED WITH EYES CLOSED. RESPIRAIOTNS 24. CALL LGIHT IN REACH. ATE 100% OF LUNCH.
--- NOTE | 2019-02-04 13:54 | NUR ---
PATIENT IS SLEEPING.
--- NOTE | 2019-02-04 15:11 | NUR ---
In and spoke with Chris. Saha in room. Pt labored breathing. Denies needs. Again stating he has all the equipment he needs at home.
--- NOTE | 2019-02-04 17:30 | NUR ---
PT REPORTING ANXIETY. VISTARIL 100MG ADMINISTERED.
--- NOTE | 2019-02-04 19:30 | NUR ---
RECEIVED REPORT FROM RENEE CARDOZO. pt ON BiPAP, REQUESTED IT TO BE TURNED OFF. ON 4L O2 VIA NC. WHITEBOARD UPDATED. CALL LIGHT WITHIN REACH.
--- NOTE | 2019-02-04 19:40 | NUR ---
PT REQUESTING TO COME OFF BIPAP. 4L NC PLACED. CALL LIGHT IN REACH.
--- NOTE | 2019-02-04 20:20 | NUR ---
ASSESSMENT DONE. pt SITTING IN BED USING ACCESSORY MUSCLES TO BREATH, RETRACTIONS NOTED. pt REQUESTED THAT INFORMATION BE REPEATED MULTIPLE TIMES. pt REFUSED REMAINING DEPAKOTE DUE TO PILL SIZE AFTER TAKING ONE. EDUCATION DONE, OFFERED TO ADMINISTER WITH BREAKS IN BETWEEN pt CONTINUED TO REFUSE.
--- NOTE | 2019-02-04 20:37 | NUR ---
MD NOTIFIED THAT pt IS REFUSING MEDICATION, WILL CONTINUE TO TRY TO ADMINISTER MED IN INCREMENTS.
--- NOTE | 2019-02-04 20:40 | NUR ---
RELAYED REQUEST FROM MD FOR pt TO TAKE MEDICATION. pt AGREED. MEDICATION GIVEN (SEE MAR). RENEE MONZON IN ROOM TO DO VITALS.
--- NOTE | 2019-02-04 22:35 | NUR ---
ROUNDED ON pt RESTING IN BED WITH EYES CLOSED, RESPIRATIONS LABORED. CALL LIGHT WITHIN REACH.
--- NOTE | 2019-02-05 00:24 | NUR ---
ROUNDED ON pt. RESTING IN BED WITH EYES CLOSED, RESPIRATIONS LABORED. CALL LIGHT WITHIN REACH.
--- NOTE | 2019-02-05 03:00 | NUR ---
ROUNDED ON pt. SITTING ON SIDE OF BED. NO REQUESTS AT THIS TIME. BREATHS LABORED. OFFERED NEB TREATMENT pt REFUSED AT THIS TIME. CALL LIGHT WITHIN REACH.
--- NOTE | 2019-02-05 05:43 | NUR ---
VITALS AND I&OS DONE AND CHARTED. GARBAGES EMPTIED. BEDSIDE TABLE AND CALL LIGHT IN REACH.
--- NOTE | 2019-02-05 05:44 | NUR ---
pt RESTING, WOKE BRIEFLY TO VOICE, DROWSY. ASSESSMENT DONE. VITALS AND I&O RECORDED. ROOM TIDIED. CALL LIGHT WITHIN REACH.
--- NOTE | 2019-02-05 06:42 | NUR ---
pt ANXIOUS AT BEGINNING OF SHIFT. PRN MEDICATION GIVEN X1. pt RESTED MOST OF SHIFT. USING ACCESSORY MUSCLES, BREATHING LABORED. 4L O2 VIA NC. USED BiPAP AT BEGINNING OF SHIFT. USES CALL LIGHT APPROPRAITELY.
--- NOTE | 2019-02-05 07:45 | NUR ---
PT IN BED AT THIS TIME, RESP EVEN AND NON LABORED. PT IS ON 4L OXYGEN PER NC, RESP NON LBAORED AT THIS TIME. PERSONAL SUPPLIES AND CALL LIGHT WITHIN REACH.
--- NOTE | 2019-02-05 11:27 | NUR ---
ADMIN ATIVAN 0.5MG IVP FOR C/O ANXIETY.
--- NOTE | 2019-02-05 13:29 | NUR ---
PT RESTING IN BED AT THIS TIME, RESP EVEN AND NON LABORED. PERSONAL SUPPLIES AND CALL LIGHT WIHTIN REACH.
--- NOTE | 2019-02-05 16:34 | NUR ---
PT AWAKE, SITTING UP IN BED. PT REMIANS ON 4L OXYGEN. PT DENIES PAIN AT THIS TIME. PERSONAL SUPPLIES AND CALL LIGHT WITHIN REACH.
--- NOTE | 2019-02-05 19:20 | NUR ---
RECEIVED REPORT FROM RENEE GLOVER. pt RESTING IN BED. NO REQUESTS AT THIS TIME. CALL LIGHT WITHIN REACH. WHITEBOARD UPDATED.
--- NOTE | 2019-02-05 20:39 | NUR ---
pt SITTING IN BED. ASSESSMENT DONE. pt REPORTED ANXIETY, PRN MEDICATION GIVEN WITH SCHEDULED MEDICATIONS. RT GAVE NEB TREATMENT. pt REQUESTED ATIVAN APPROXIMATELY 30 MINUTES AFTER TAKING VISTRIL, GIVEN (SEE MAR). PROVIDED FOOD AND COFFEE. VITALS AND I&O RECORDED. LIGHTS OFF FOR COMFORT. NO FURTHER REQUESTS AT THIS TIME. CALL LIGHT WITHIN REACH.
--- NOTE | 2019-02-05 21:15 | NUR ---
VITALS AND I&OS DONE AND CHARTED. BEDSIDE TABLE AND CALL LIGHT IN REACH. PT NEEDS NOTHING MORE AT THIS TIME.
--- NOTE | 2019-02-05 22:45 | NUR ---
ROUNDED ON pt. RESTING WITH EYES CLOSED, RESPIRATIONS REGULAR. CALL LIGHT WITHIN REACH.
--- NOTE | 2019-02-06 00:12 | NUR ---
pt SITTING ON SIDE OF BED. NO REQUESTS AT THIS TIME. REFUSED NEB TREATMENT. CALL LIGHT WITHIN REACH.
--- NOTE | 2019-02-06 02:57 | NUR ---
ROUNDED ON pt. SITTING ON THE SIDE OF THE BED. REPORTED "I'M HAVING A PANIC ATTACK" PRN MEDICATION GIVEN (SEE MAR). PROVIDED FOOD PER REQUEST. ASSISTED WITH OXYGEN. NO FURTHER REQUESTS AT THIS TIME. CALL LIGHT WITHIN REACH.
--- NOTE | 2019-02-06 04:39 | NUR ---
ROUNDED ON pt. REQUESTED ANXIETY MEDICATION. PRN GIVEN (SEE MAR). REFUSED NEB TREATMENT AT THIS TIME. NO FURTHER REQUESTS CALL LIGHT WITHIN REACH.
--- NOTE | 2019-02-06 05:53 | NUR ---
VITALS AND I&O RECORDED. pt REPORTED "I'M DOING FINE" SITTING ON THE SIDE OF THE BED. CALL LIGHT WITHIN REACH.
--- NOTE | 2019-02-06 06:30 | NUR ---
pt RESTED FOR A FEW HOURS DURING SHIFT. HAD ANXIETY, PRN MEDS X4. IV SL. ATE THROUGHOUT SHIFT. NICOTINE PATCH IN PLACE PER REQUEST. USED ACCESSORY MUUSCLES. 4L O2 VIA NC. INDEPENDENT IN ROOM.
--- NOTE | 2019-02-06 07:20 | NUR ---
PT RESTING ON LEFT LATERAL SIDE IN BED RR EVEN AT 20 ON 4LPNC. PT APPEARS TO BE SLEEPING COMFORTABLY. CALL LIGHT AND H2O IN REACH. REPORT RECEIVED FROM RENEE HI.
--- NOTE | 2019-02-06 08:01 | NUR ---
Patient is sleeping. call light in reach. fresh water in reach
--- NOTE | 2019-02-06 08:18 | NUR ---
IN TO SEE PATIENT. AM MEDS ADMINISTERED, BREAKFAST TRAY ARRIVED AND I ASSISTED PT IN SETTING UP TRAY. PT NOW EATING BUT BECAME SOB WITH TACHYPNEA. RT NOTIFIED. PT ASSITED BACK ONTO BIPAP AND WILL RECEIVE NEB TX THROUGH BIPAP PER RT. CALL LIGHT AND H2O IN REACH. RT REMAINS AT BEDSIDE TO ADMINISTER BREATHING TREATMENT.
--- NOTE | 2019-02-06 08:32 | NUR ---
BREATHING TX COMPLETED. PT 97% ON 32% FIO2 PER BIPAP; RR 26. PT RESTING WITH EYES CLOSED AND APPEARS TO BE IN NO ACUTE DISTRESS.
--- NOTE | 2019-02-06 10:03 | NUR ---
PT RESTING ON LEFT LATERAL SIDE IN BED EYES CLOSED AND RESPIRATIONS EVEN BUT LABORED AT 28. NC LAYING NEXT TO PT SO WAS REAPPLIED. PT ALERT TO VOICE AND DENIES NEEDS OR CONCERNS. CALL LIGHT AND H2O IN REACH.
--- NOTE | 2019-02-06 10:47 | NUR ---
Patient's sister, Opal, and brother in law, Tomasz Rowe, called for update on patient. Provided this RN with their contact information. They reported they plan to take the patient home when he is ready for discharge. Opal says, "I don't mean to be mean about his , but she is a meth-head and can't take care of him". She asked if there was any paperwork they needed to fill out to be able to take him home to help care for him. I informed her there most likely wasn't, but that the returned case inspector would be the best resource for them and she would be here on Thursday. Demographic information updated.
--- NOTE | 2019-02-06 12:10 | NUR ---
PT RESTING SUPINE IN BED RR 26 ON 4LPNC. EYES CLOSED BUT PT ALERT TO VOICE. PT WAS INCONTINANT OF WATERY STOOL SO WAS ASSISTED IN TO SHOWER TO SHOWER CHAIR WITH 2PA. EAGLE GAN IN ASSISTING PT SET UP FOR SHOWER AND LINENS WERE CHANGED.
--- NOTE | 2019-02-06 13:00 | NUR ---
PT ATE 100% OF HIS SALMON AND MASHED POTATOES THAT WAS ORDERED FOR LUNCH. PT NOW RESTING BACK IN BED ON LEFT LATERAL SIDE. O2 SAT 99% ON 4LPNC. PT APPEARS OT BE IN NO ACUTE DISTRESS AND DENIES NEEDS OR CONCERNS.
--- NOTE | 2019-02-06 14:00 | NUR ---
PT RESTING ON LEFT LATERAL SIDE IN BED. EYES CLOSED AND RESPIRATIONS EVEN AND UNLABORED, O2 SAT 99% ON 4LPNC. CALL LIGHT AND H2O IN REACH. PT APPEARS TO BE SLEEPING COMFORTABLY.
--- NOTE | 2019-02-06 16:00 | NUR ---
PT RESTING ON LEFT LATERAL SIDE IN BED. EYES CLOSED AND RESPIRATIONS EVEN AND UNLABORED, O2 SAT 98% ON 4LPNC. CALL LIGHT AND H2O IN REACH. PT APPEARS TO BE SLEEPING COMFORTABLY.
--- NOTE | 2019-02-06 17:00 | NUR ---
Pt's spouse Denise called and requested pt call her. Pt notified of this and states "okay thank you".
--- NOTE | 2019-02-06 17:57 | NUR ---
PT RESTING IN SEMIFOWLERS POSITION IN BED ALERT AND ORIENTED EATING DINNER. PT TOLERATED A 100% OF THOMPSON CHEESEBURGER. ASSESSMENT COMPLETED AND PT STATES "I'M DOING GOOD, THANK YOU MAN". PT DENIES FURTHER NEEDS OR CONCERNS. CALL LIGHT AND H2O IN REACH.
--- NOTE | 2019-02-06 19:31 | NUR ---
BEDSIDE REPORT RECEIVED FROM RENEE HARLEY. pt RESTING IN BED WITH EYES CLOSED. ACCESSORY MUSCLE USE WITH BREATHING, TACHYPNIC. 4L OXYGEN BY NC IN PLACE.
--- NOTE | 2019-02-06 20:51 | NUR ---
ROUNDED CHARGE. PATIENT IS RESTING IN BED WITH EYES CLOSED, RR 28. CALL LIGHT IN REACH.
--- NOTE | 2019-02-06 21:44 | NUR ---
pt ASSESSMENT COMPLETE. BREATHING LABORED, TACHYPNIC WITH SWALLOWING SCHEDULED MEDICATIONS. PRN ANXIETY MEDICATIONS ADMINISTERED PER pt REQUEST. LUNG SOUNDS CLEAR. ACCESSORY MUSCLE USE WITH BREATHING. PUDDING, YOGURT, COFFEE, WATER PROVIDED. IV SITE SL WNL. CALL LIGHT IN REACH. REQUESTING BREATHING TREATMENT BE HELD AT THIS TIME.
--- NOTE | 2019-02-06 22:15 | NUR ---
pt APPEARS TO BE SLEEPING, EYES CLOSED. RR 22. 4L OXYGEN BY NC IN MOUTH.
--- NOTE | 2019-02-07 01:01 | NUR ---
CHECKED ON pt. RESTING IN BED ON LEFT SIDE. RR 26. 4L OXYGEN BY NC IN MOUTH.
--- NOTE | 2019-02-07 03:28 | NUR ---
CHECKED ON pt, RESTING ON LEFT SIDE WITH EYES CLOSED. ACCESSORY MUSCLE USE. 4L OXYGEN BY NC IN MOUTH.
--- NOTE | 2019-02-07 04:39 | NUR ---
pts VS and I&Os complete. he requested coffee and a chocolate pudding. Nothing further needed at this time.
--- NOTE | 2019-02-07 04:39 | NUR ---
RT IN ROOM FOR BREATHING TREATMENT. COFFEE PROVIDED TO pt. ASSESSMENT COMPLETE. UPPER AIRWAY WHEEZE HEARD LEFT UPPER LOBE, LUNG SOUNDS DIMINISHED. pt DROWSY, REQUESTING TO SLEEP. 4L OXYGEN BY NC IN PLACE. CALL LIGHT IN REACH.
--- NOTE | 2019-02-07 04:44 | NUR ---
pt RESTED WELL THIS SHIFT. SOB WITH EXERTION. 4L OXYGEN BY NC IN PLACE THROUGHOUT SHIFT. REFUSING BIPAP, REFUSING TWO SCHEDULED NEB TREATMENTS. TACHYPNIC. AMBULATING IN ROOM. TOLERATING REGULAR DIET.
--- NOTE | 2019-02-07 07:22 | NUR ---
BEDSIDE REPORT FROM RUBI DURAN, PT RESTING IN BED EYES CLOSED RR EVEN AT 20 BPM, PT HAS N.C. AT 4L AT HIS MOUTH, PER PT PREFERENCE, PT REFUSED BIPAP OVER NIGHT AND THIS AM. PT APPEARS TO BE SLEEPING.
--- NOTE | 2019-02-07 09:21 | NUR ---
PT RESTING IN BED DROWSY, HE REPORTS HE IS A NGHT OWL AT HOME, DOESNT USUALLY WAKE UP THIS EARLY. PT SLOW TO COOPERATE WITH CARE. PT THEN MORE ALERT AND IRRITABLE. HE REQUESTS SOMETHING FOR ANXIETY, WILL PROVIDE VISTRIL PRN.
--- NOTE | 2019-02-07 09:42 | NUR ---
PATIENT RESTING IN BED. RN IN ROOM. VITAL SIGNS AND I&O DONE. CALL LIGHT WITHIN REACH. NO OTHER NEEDS AT THIS TIME
--- NOTE | 2019-02-07 10:15 | NUR ---
UPDATED ON PATIENTS AM CARE AND COOPERATION.
[2019-02-07] MEDS ORDERED: HYDROXYZINE HCL25 MG PO (10:24)
[2019-02-07] MEDS ORDERED: BENZONATATE100 MG PO (10:24)
[2019-02-07] MEDS ORDERED: PREDNISONE20 MG PO (10:27)
--- NOTE | 2019-02-07 10:37 | NUR ---
SPOKE WITH PT FRIEND JABARI REGARDING DC AND SHE WILL BE HERE APPROX . 13-- TO [employer]APP[employer]JUSTER PT. SPOKE WITH PT REGARDING PRESCRIPTION, HE STATED THAT HE COULD FILL THEM AT A PHARM [place] WE [place] HAVE [place].
--- NOTE | 2019-02-07 11:00 | NUR ---
In and spoke with Volodymyr, plans on going home with his sister today. Portable 02 tank is empty. Called [facility] and they will attempt to get a tank here by 1pm when his sister plans on picking him up. Attempted to call sister to bring a tank and she has already left [facility]. Pt states he has all DME he needs.
--- NOTE | 2019-02-07 11:16 | NUR ---
PATIENT REFUSED TO TAKE A SHOWER TODAY BECAUSE HE IS GOING TO BE DISCHARGE TO HOME AND HER PREFERS TO TAKE A SHOWER AT HOME. CALL LIGHT WITHIN REACH. NO OTHER NEEDS AT THIS TIME
--- NOTE | 2019-02-07 12:39 | NUR ---
IV TAKEN OUT UPON RN REQUEST. CATH INTACT AND LOOKED GOOD, RN [id number].
--- NOTE | 2019-02-07 12:40 | NUR ---
PT RESTING IN BED EDUCATION AND DISCHARGE PACKET PROVIDED, DISCUSSED SAFE OXYGEN USE AT HOME AND COPD. SIGNS AND SYMPTOMS TO MONITOR FOR WELL PREVENTION MAINTANENCE FOR FLARE UPS. HIS SISTER CAMETO PICK PT UP AND ARIANNEMS CAME TO PROVIDE FULL TRAVEL TANK OF OXYGEN.
--- NOTE | 2019-02-07 13:22 | NUR ---
PT GETTING READY FOR DC-[facility]STER AND HIS DAUGHTER HERE TO TRANSPORT. PT SEEMS PLEASED I STOPPED BY, GOOD VISIT. LOST A SOCK, [facility] GOT A PAIR OUT OF CLOSET FOR PT. HIS SISTER REQUESTED PRAYER, PT THANKED ME FOR COMING BY. WILL FOLLOW NEEDED
== END 2019-02-07 12:45 | disposition home or self-care (01) | DRG 191 ==
LOC: ED 16:08 → CCU 19:06 → MS 19:06
PROVIDERS: ADMIT Internal Medicine
DX: J44.1 Chronic obstructive pulmonary disease with (acute) exacerbation (principal); J96.11 Chronic respiratory failure with hypoxia; F17.210 Nicotine dependence, cigarettes, uncomplicated; F43.10 Post-traumatic stress disorder, unspecified; I10 Essential (primary) hypertension; E78.5 Hyperlipidemia, unspecified; K59.00 Constipation, unspecified; F41.1 Generalized anxiety disorder; Z79.899 Other long term (current) drug therapy; Z79.51 Long term (current) use of inhaled steroids
CPT/HCPCS: 36600; 71045; 80048; 80053; 82803; 83880; 84484; 85025; 94640; 94644; 94660; 94760; 99285-25; 99406; C9113; J1650; J2060; J2270; J2930

== ENCOUNTER 2019-04-04 18:28 | Emergency (ER) | payer MEDICARE, OTHER ==
[~2019-04-04] VITALS: Ht 172.7 cm; Wt 54.4 kg
[~2019-04-04 18:28] MED LIST changes: +BENZONATATE100 MG PO; +COMBIVENT RESPIM4 GM INH; +DEPAKOTE ER500 MG PO; +HYDROXYZINE HCL25 MG PO; +IPRAT-ALBUT 0.5-3 ML INH; +LIDODERM1 EACH TOP; +NICOTINE LOZENGE2 MG BUCCAL; +NICOTINE PATCH1 EAC1 TOP; +RISPERDAL2 MG PO; +SODIUM FLUORIDE51 GM MM; +THERA-M CAPLET1 EACH PO; +ZOCOR40 MG PO
[2019-04-04] MEDS ORDERED: PREDNISONE20 MG PO (20:22)
== END 2019-04-04 21:25 | disposition home or self-care (01) ==
LOC: ED 18:28
DX: J44.1 Chronic obstructive pulmonary disease with (acute) exacerbation (principal); F43.10 Post-traumatic stress disorder, unspecified; Z87.891 Personal history of nicotine dependence; Z79.899 Other long term (current) drug therapy
CPT/HCPCS: 71045; 80053; 85025; 94644; 94660; 96374; 99285-25; J2930

== ENCOUNTER 2019-06-15 22:36 | Emergency (ER) | payer MEDICARE, OTHER ==
[2019-06-16] MEDS ORDERED: DICLO GEL1 EACH TD (08:36)
[2019-06-16] MEDS ORDERED: NICOTINE GUM2 MG MT (08:39)
== END 2019-06-15 22:48 | disposition left against medical advice (07) ==
LOC: ED 22:36
DX: Z53.21 Procedure and treatment not carried out due to patient leaving prior to being seen by health care provider (principal)

== ENCOUNTER 2019-06-16 07:21 | Emergency (ER) | payer MEDICARE, OTHER ==
[~2019-06-16] VITALS: Ht 172.7 cm; Wt 54.4 kg
--- OUTSIDE RECORDS SUMMARY | 2019-06-16 07:24 | XMS ---
PreManage Notification: ANITA FRIAS Security Pattern Data Operator Events No recent Security Events currently on file CRITERIA MET - - 2 Visits in 30 Days CARE PROVIDERS Name Unknown Dietitian, Registered 02/03/2019-Current PHONE: [phone] Becca has no Care Guidelines for this patient. Derrick VISIT COUNT (12 MO.) 7 [facility] TOTAL 7 NOTE: Visits indicate total known visits. ED/C VISIT TRACKING (12 MO.) 06/16/2019 07:22 [facility] TYPE: Emergency COMPLAINT: - FALL, LIP INJURY 06/15/2019 22:38 [facility] TYPE: Emergency COMPLAINT: - FALL,INJURED LIP 04/04/2019 18:28 [facility] TYPE: Emergency COMPLAINT: - SOB DIAGNOSES: - Personal history of nicotine dependence - Post-traumatic stress disorder, unspecified - Chronic obstructive pulmonary disease with (acute) exacerbati - Shortness of breath - Other jail (current) drug therapy - Chronic obstructive pulmonary disease with (acute) exacerbati 02/02/2019 16:08 [facility] TYPE: Emergency COMPLAINT: - SOB 01/31/2019 05:12 [facility] TYPE: Emergency COMPLAINT: - SOB/COUGH DIAGNOSES: - Post-traumatic stress disorder, unspecified - Personal history of nicotine dependence - Other superintendent container terminal (current) drug therapy - Chronic obstructive pulmonary disease with (acute) exacerbati - Shortness of breath 12/15/2018 23:03 [facility] TYPE: Emergency COMPLAINT: - SOB 07/30/2018 04:19 [facility] TYPE: Emergency COMPLAINT: - SOB INPATIENT VISIT TRACKING (12 MO.) 02/02/2019 19:06 [facility] TYPE: [facility] COMPLAINT: - ACUTE RESPIRATORY FAILURE DIAGNOSES: - Acute and chronic respiratory failure, unspecified whether wi - Post-traumatic stress disorder, unspecified - Constipation, unspecified - Chronic obstructive pulmonary disease with (acute) exacerbati - Nicotine dependence, cigarettes, uncomplicated - medical terminologist (current) use of inhaled steroids - Essential (primary) hypertension - Other jail (current) drug therapy - Chronic respiratory failure with hypoxia - Hyperlipidemia, unspecified - Generalized anxiety disorder 12/16/2018 00:32 [facility] TYPE: [facility] COMPLAINT: - ACUTE RESP FAILURE DIAGNOSES: - Generalized anxiety disorder - Other superintendent container terminal (current) drug therapy - Dependence on supplemental oxygen - detention (current) use of non-steroidal anti-inflammatories - Acute and chronic respiratory failure with hypoxia - Hyperlipidemia, unspecified - Chronic obstructive pulmonary disease with (acute) exacerbati - Post-traumatic stress disorder, unspecified - Nicotine dependence, unspecified, uncomplicated - Essential (primary) hypertension - Acute and chronic respiratory failure with hypercapnia - detention (current) use of inhaled steroids 07/30/2018 07:[address] [facility] TYPE: Medical Surgical COMPLAINT: - RESPIRATORY FAILURE DIAGNOSES: - Chronic obstructive pulmonary disease with (acute) exacerbati - Chronic obstructive pulmonary disease with (acute) exacerbati - Dependence on supplemental oxygen - Opioid abuse, uncomplicated - Post-traumatic stress disorder, unspecified - Essential (primary) hypertension - Other jail (current) drug therapy - Acute and chronic respiratory failure with hypoxia - Nicotine dependence, cigarettes, uncomplicated - Dependence on supplemental oxygen - Other stimulant abuse, uncomplicated - Other jail (current) drug therapy - Post-traumatic stress disorder, unspecified - Other stimulant abuse, uncomplicated - Anxiety disorder, unspecified - Anxiety disorder, unspecified - Hyperlipidemia, unspecified - Nicotine dependence, cigarettes, uncomplicated - Hyperlipidemia, unspecified - Essential (primary) hypertension - Opioid abuse, uncomplicated [email or web address]
[2019-06-16] MEDS ORDERED: DICLO GEL1 EACH TD (08:36)
[2019-06-16] MEDS ORDERED: NICOTINE GUM2 MG MT (08:39)
== END 2019-06-16 08:50 | disposition home or self-care (01) ==
LOC: ED 07:21
DX: S01.511A Laceration without foreign body of lip, initial encounter (principal); J44.9 Chronic obstructive pulmonary disease, unspecified; F17.200 Nicotine dependence, unspecified, uncomplicated; Z79.899 Other long term (current) drug therapy; W01.0XXA Fall on same level from slipping, tripping and stumbling without subsequent striking against object, initial encounter
CPT/HCPCS: 12011; 70450; 99283-25; 99406